=== PATIENT | female | born 2000 | race Caucasian/White ===

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

== ENCOUNTER → 2018-03-09 12:15 | Outpatient (CLI) | payer BC, SELFPAY ==
[2018-03-09 14:12] LABS: Absolute Lymphocyte Count 2.61 X10^3/ul (0.83-4.51); Absolute Neutrophil Count 4.2 X10^3/uL (2.0-7.7); Basophil# 0.04 X10^3/uL; Basophil% 0.5 % (0-1); Eosinophil# 0.08 X10^3/uL; Eosinophils% 1.1 % (0-5); Hematocrit 39.3 % (37-47); Hemoglobin 12.4 g/dl (12.0-15.0); Lymphocyte # 2.61 X10^3/ul (4.0); Lymphocyte % 34.5 % (19-41); Mean Corp Hgb Conc 31.6 g/gl (32-36); Mean Corpuscular Hgb 29.5 pg (27.0-32.0); Mean Corpuscular Volume 93.3 fL (81-99); Mean Platelet Vol. 12.3 fl (6.2-12.0); Monocyte% 7.9 % (0-10); Neutrophil # 4.23 X10^3/uL (2.7-7.7); Neutrophil % 55.9 % (47-70); POSITIVE COUNT NO; POSITIVE DIFFERENTIAL NO; POSITIVE MORPHOLOGY NO; Platelet Count 274 K/mm3 (150-450); RBC Distribution Width CV 13.5 % (11.6-14.6); RBC Distribution Width SD 44.1 fl (35.1-43.9); Red Blood Count 4.21 M/mm3 (4.2-5.4); White Blood Count 7.6 K/mm3 (4.4-11.0)
[2018-03-09 14:31] LABS: Vitamin B12 341 pg/mL (211-911); Vitamin D,25 Hydroxy 47.8 ng/mL (29.95-100.01)
[2018-03-09 14:32] LABS: Anion Gap 8 (5-15); BUN 6 mg/dL (7-18); BUN/Creat Ratio 9.6 RATIO (10-20); Calcium,Total 8.7 mg/dL (8.5-10.1); Chloride 108 mmol/L (98-107); Creatinine, Serum 0.62 mg/dL (0.55-1.02); EST Glomerular Filtration Rate 130 mL/min (>60); Est Glom Filt Rate - Afr Amer 158 mL/min (>60); Glucose 101 mg/dL (74-106); Sodium Level 144 mmol/L (136-145); Thyroid Stim Hormone (TSH) 1.51 uIU/mL (0.358-3.74)
== END ==
PROVIDERS: Family Provider Family Medicine; PCP Family Medicine; Visit Provider Family Medicine
DX: R00.0 Tachycardia, unspecified (principal); E55.9 Vitamin D deficiency, unspecified; E53.8 Deficiency of other specified B group vitamins
CPT/HCPCS: 36415; 80048; 82306; 82607; 83735; 84443; 85025

== ENCOUNTER → 2018-04-24 11:16 | Outpatient (CLI) | payer BC, SELFPAY | PROVIDERS: Family Provider Family Medicine; PCP Family Medicine; Visit Provider Family Medicine | DX: N39.0 Urinary tract infection, site not specified (principal) | CPT/HCPCS: 87077; 87086; 87088; 87186 ==

== ENCOUNTER → 2018-06-11 16:49 | Outpatient (CLI) | payer BC, SELFPAY ==
[2018-06-11 18:05] LABS: Vitamin B12 223 pg/mL (211-911); Vitamin D,25 Hydroxy 68.8 ng/mL (29.95-100.01)
== END ==
PROVIDERS: Family Provider Family Medicine; PCP Family Medicine; Referring Provider Family Medicine; Visit Provider Family Medicine
DX: E55.9 Vitamin D deficiency, unspecified (principal); E53.8 Deficiency of other specified B group vitamins
CPT/HCPCS: 36415; 82306; 82607

== ENCOUNTER → 2018-12-25 15:22 | Outpatient (CLI) | payer BC, SELFPAY ==
[2018-12-25 17:50] LABS: Absolute Lymphocyte Count 2.52 X10^3/ul (0.83-4.51); Absolute Neutrophil Count 7.1 X10^3/uL (2.0-7.7); Basophil# 0.02 X10^3/uL; Basophil% 0.2 % (0-1); Eosinophil# 0.13 X10^3/uL; Eosinophils% 1.2 % (0-5); Hematocrit 39.9 % (37-47); Hemoglobin 12.6 g/dl (12.0-15.0); Lymphocyte # 2.52 X10^3/ul (4.0); Lymphocyte % 24.2 % (19-41); Mean Corp Hgb Conc 31.6 g/gl (32-36); Mean Corpuscular Hgb 29.8 pg (27.0-32.0); Mean Corpuscular Volume 94.3 fL (81-99); Mean Platelet Vol. 12.6 fl (6.2-12.0); Monocyte# 0.63 X10^3/uL; Neutrophil # 7.11 X10^3/uL (2.7-7.7); Neutrophil % 68.2 % (47-70); Platelet Count 302 K/mm3 (150-450); RBC Distribution Width CV 13.1 % (11.6-14.6); RBC Distribution Width SD 43.5 fl (35.1-43.9); Red Blood Count 4.23 M/mm3 (4.2-5.4); White Blood Count 10.4 K/mm3 (4.4-11.0)
[2018-12-25 17:52] LABS: POSITIVE COUNT NO; POSITIVE DIFFERENTIAL NO; POSITIVE MORPHOLOGY NO
[2018-12-25 18:15] LABS: ALB/GLOB Ratio 1.1 RATIO (0.9-2.4); AST(SGOT) 17 U/L (15-37); Alanine Aminotransfer ALT/SGPT 20 U/L (13-56); Albumin, Serum 3.5 g/dL (3.2-5.0); Alkaline Phosphatase 72 U/L (45-117); Anion Gap 6 (5-15); BUN 7 mg/dL (7-18); BUN/Creat Ratio 10.2 RATIO (10-20); Calcium,Total 8.8 mg/dL (8.5-10.1); Chloride 105 mmol/L (98-107); Creatinine, Serum 0.68 mg/dL (0.55-1.02); EST Glomerular Filtration Rate 116 mL/min (>60); Est Glom Filt Rate - Afr Amer 140 mL/min (>60); Globulin 3.3 g/dL (2.2-4.2); Glucose 89 mg/dL (74-106); Potassium 4.5 mmol/L (3.5-5.1); Protein, Total 6.8 g/dL (6.4-8.2); Sodium Level 140 mmol/L (136-145); Thyroid Stim Hormone (TSH) 1.03 uIU/mL (0.358-3.74)
[2018-12-25 18:40] LABS: Vitamin B12 1374 pg/mL (211-911); Vitamin D,25 Hydroxy 44.9 ng/mL (29.95-100.01)
== END ==
PROVIDERS: Family Provider Family Medicine; PCP Family Medicine; Referring Provider Family Medicine; Visit Provider Family Medicine
DX: R53.83 Other fatigue (principal); E53.8 Deficiency of other specified B group vitamins; E55.9 Vitamin D deficiency, unspecified
CPT/HCPCS: 36415; 80053; 82306; 82607; 84443; 85025

== ENCOUNTER → 2019-01-18 14:54 | Outpatient (CLI) | payer BC, SELFPAY ==
[2019-01-18 17:58] LABS: Free T3 3.3 pg/mL (2.18-3.98); T4 Free Direct 1.12 ng/dL (0.76-1.46); Thyroid Stim Hormone (TSH) 1.08 uIU/mL (0.358-3.74)
[2019-01-20 08:19] LABS: Thyroid Peroxidase AB 13 IU/mL (0-34)
== END ==
PROVIDERS: Family Provider Family Medicine; PCP Family Medicine
DX: R53.83 Other fatigue (principal)
CPT/HCPCS: 36415; 84439; 84443; 84481; 86376

== ENCOUNTER → 2019-08-06 13:55 | Outpatient (CLI) | payer BC, SELFPAY ==
[2019-08-06 15:32] LABS: Vitamin B12 461 pg/mL (211-911); Vitamin D,25 Hydroxy 39.4 ng/mL (29.95-100.01)
== END ==
PROVIDERS: Family Provider Family Medicine; PCP Family Medicine; Visit Provider Family Medicine
DX: E53.8 Deficiency of other specified B group vitamins (principal); E55.9 Vitamin D deficiency, unspecified
CPT/HCPCS: 36415; 82306; 82607

== ENCOUNTER → 2020-02-04 13:55 | Outpatient (CLI) | payer BC, SELFPAY ==
[2020-02-04 15:54] LABS: Vitamin B12 223 pg/mL (211-911); Vitamin D,25 Hydroxy 42.1 ng/mL
== END ==
PROVIDERS: PCP Family Medicine; Referring Provider Family Medicine; Visit Provider Family Medicine
DX: E53.8 Deficiency of other specified B group vitamins (principal); E55.9 Vitamin D deficiency, unspecified
CPT/HCPCS: 36415; 82306; 82607; 82746

== ENCOUNTER 2020-02-13 09:00 | Outpatient (RCR) | payer BC, SELFPAY ==
--- NOTE | 2020-02-13 09:03 | BH.SGPN.GN ---
Behaviors/Verbalizations/Mental Status: [] Client alert and oriented, casually dressed. Eye contact good. Motor activity appropriate. Speech within normal limits. Affect congruent, mood anxious. Thoughts linear, logical, no signs of hallucinations or delusions. Reviewed client?s symptom tracker, self-reported risk for suicidal ideation as 2/, pt completed CSSR assessment with therapist prior to group and was found to not to be an immediate risk, denies plan or intent as of 02/13/20. Client Response/Progress/Benefit: []Client first day in IOP program, remained attentive and was willing to share with the group. Reports feeling anxious today as she has new to group counseling and is nervous about what to expect. Notes that this is a current stressor for her but that she recognizes the necessity of finding a ?better balance? regarding her mental health and current responsibilities. Client receptive of and appeared to benefit from support and encouragement from the group. Did well to identify a current mental health win which included stepping outside her comfort zone and asking for help via seeking mental health treatment. Noted goals for IOP treatment include improving ability to cope with depression in healthy ways, increase balance, and improve medication management. Progress not noted as client new to program. Will continue IOP tx to prevent decompensation, improve mood stability, and promote healthy mental health sx management. Narrative Note: []
--- NOTE | 2020-02-13 10:17 | BH.SGPN.GN ---
Behaviors/Verbalizations/Mental Status: []Eye contact is good. Motor activity is appropriate. Appearance is neat and clean. Speech is Appropriate. Mood is anxious, depressed. Affect is unable to gather due to wearing a mask for COIVD-19 protocol. Thoughts are linear and logical. No evidence of psychosis. Client Response/Progress/Benefit: []Client was an active participant in group discussion and activity, providing input throughout. Client worked with peers on defining what goals are. Brainstormed with the group the benefits of goal setting which included: increased motivation, sense of accomplishment, increased confidence, growth, and purpose. Client helped group discussed the barriers that keep people from either setting goals are following through with goals. Client connected with barriers of black and white thinking, fear of success, and ?what if thinking? that keep people from reaching goals. Able to provide feedback during psychoeducation on SMART goals. Engaged in activity and did well to provide ideas and listen to peers. Client appeared to benefit from learning the mental health benefits of setting goals that are SMART. Will continue IOP tx to prevent decompensation of anxiety and depressive symptoms as well as increase the use of healthy coping skills. Narrative Note: []
--- NOTE | 2020-02-14 08:48 | BH.MTP_ITS ---
Master Treatment Plan - Patient Information Program Physician:: Dr. Dalia Manrique Primary Therapist:: ALLISON Hensley - Psychiatric Diagnoses Psychiatric Diagnoses:: Major depressive disorder recurrent severe without psychosis; PTSD; generalized anxiety disorder. Diagnosis Code(s):: F 33.2 - Estimated LOS Estimated LOS (in weeks):: 6 Problem/Goal #1 - Problem/Goal #1 Stated Goal:: Client will reduce depression, feelings of hopelessness, and suicidal ideation due to Major Depressive Disorder through Intensive Outpatient Program. 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 Pt also reports chronic physical ailments which impact energy and motivation levels. Functional Impact: Currently MH symptoms are interfering with pt ability to function at baseline. Pt reports difficulties in reaching out to social supports on a consistent basis due to isolative behaviors, difficulties in maintaining anxiety regarding her current relationships, difficulties with sleep and pain management resulting in increased difficulties in maintaining focus and motivation, financial strain, and difficulties completing daily responsibilities. Goal Relevant Strengths/Supports: Pt is open-minded and willing to try new treatment approaches, reports motivation to improve her mental health, she is friendly and engaging, familiar with mental health counseling services, goal oriented, and intelligent - Objectives Objective #1 Stated Objective: Client will learn and utilize 2-3 healthy coping strategies to improve mood stability and better manage mental health symptoms. Interventions: Therapist will help client develop insight into mental health warning signs and triggers for mood dysregulation, as well as help her find strategies to better manage mood and prevent escalation of depressive symptoms. Discharge Criteria: Client will have met this goal when she can use at least 2 healthy coping strategies that effectively regulate mood and manage depressive symptoms. Target Date: 03/27/20 Review Date: 03/13/20 Objective #2 Stated Objective: Pt will decrease depressive and irritability symptoms AEB pt?s score on the DSM 5 cross-cutting measure and improve pt?s daily functioning. Interventions: Through groups and individual therapy, pt will be provided with education on cognitive distortions, mistaken beliefs, and identifying and combating negative self-talk. Therapist will assist pt with getting back into the activities she once enjoyed as well as increasing healthy coping strategies. Discharge Criteria: Pt will have met this goal when pt?s score on the DSM 5 cross cutting measure for depression and irritability has been decreased and per pt?s report daily functioning has improved. Target Date: 03/27/20 Review Date: 03/13/20 Problem/Goal #2 - Problem/Goal #2 Stated Goal:: Stabilize anxiety level while increasing ability to function and decreasing ruminative thoughts on a daily basis through Intensive Outpatient Program. 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 Pt also reports chronic physical ailments which impact energy and motivation levels. Functional Impact: Currently MH symptoms are interfering with pt ability to function at baseline. Pt reports difficulties in reaching out to social supports on a consistent basis due to isolative behaviors, difficulties in maintaining anxiety regarding her current relationships, difficulties with sleep and pain management resulting in increased difficulties in maintaining focus and grace vation, financial strain, and difficulties completing daily responsibilities. Goal Relevant Strengths/Supports: Pt is open-minded and willing to try new treatment approaches, reports motivation to improve her mental health, she is friendly and engaging, familiar with mental health counseling services, goal oriented, and intelligent - Objectives Objective #1 Stated Objective: Client will learn and implement 2-3 calming skills to reduce overall anxiety and manage anxiety symptoms. Interventions: Therapist will teach client calming/relaxation skills and how to apply these skills to everyday life. Discharge Criteria: Client will have achieved this goal when can verbalize at least 2 calming strategies and have practiced techniques to help reduce anxiety. Target Date: 03/27/20 Review Date: 03/13/20 Objective #2 Stated Objective: Pt will decrease anxious symptoms AEB pt?s score on the DSM 5 cross-cutting measure improve pt?s daily functioning. Interventions: Through groups and individual therapy, pt will be provided education about anxiety?s impact on body and common physiological reaction to anxiety. Therapist will teach pt appropriate breathing techniques and build healthy coping skills to manage daily anxieties. Discharge Criteria: Pt will have met this goal when pt?s score on the DSM 5 cross cutting measure for anxiety has been decreased and per pt?s report daily functioning has improved. Target Date: 03/27/20 Review Date: 03/13/20
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
--- NOTE | 2020-02-19 09:16 | BH.NA_ITS ---
Physical Data - Vital Signs Pulse Rate: 84 Blood Pressure: 140/84 - Height/Weight Height: 1.65 m - stated Weight:: 113.398 kg - stated Weight in Pounds: 250.0 lbs Nutritional History - Appetite Nutritional Instructions:: If client shows signs of a swallowing problem, weight change of 10 pounds or more in the last month, or is on a diabetic diet, the physician will review and request a dietitian consult, as appropriate. All unintentional weight loss will be referred to the physician for decision on need for dietitian consult. Describe your appetite:: Poor Have you noticed a change in your eating habits lately?: Yes - Client states a decreased appetite lately, otherwise varies. Functional Assessment - Sleep Pattern Describe any problems with sleeping: Client states sleep has not been great and nelia been difficult since medication Remeron was stopped which helped with sleep. Client reports sleep hours vary per night from 0-12 hours. Client states slept 4 hours last night. - Activities Motor Activity:: Hypoactivity - Client states has had low energy and fatigue with a loss of motivation. Sensory/Communication Assess - Vision Problems Do you have any vision problems?: Glasses - Communication Problems Do you have difficulty understanding what people are saying?: No Medical Problems/History - Neurological Conditions Neurological: Other (See comments) - Fibromyalgia - Additional History Additional comments:: Client states has h/o Depression, Anxiety, PTSD, Vit B12 and Vit D deficiency Surgical History - Surgical History Have you had any surgeries? If so, list type and date:: Yes - [place] teeth Substance Abuse - Substance Abuse Please describe substance abuse in the last 30 days:: Client states consumes liquor or wine approx once per week but has recently stopped drinking. Client States uses Cannabis daily for pain management but denies any other past or current subtance uses. Client denies past or current tobacco use. Client reports consumes caffiene, consisting of tea daily. Mental Status Summary - Mental Status Significant Findings/Observations on Appearance and Mood:: Client is alert and oriented x4. Client is casually groomed. Client is cooperative with assessment, makes good eye contact during conversation. Client's speech with normal rate and volume, coherent, and spontaneous. Client appears Mildly depressed and mildly anxious during assessment. Client makes logical association, normal processing. Client denies delusions and hallucinations, none evident. Client appears to have good insight and judgement. Suicide Assessment - Suicidal Ideation Are you currently or have you been suicidal in the past?: Yes - Client states has had SI-fleeting thoughts unchanged over the past year. Suicidal Intentional Rating Scale (SIRS): Suicidal thoughts (past) - Client states has had fleeting suicidal thoughts over the past year and current. Client reports this is unchanged, denies exacerbation or worsening, denies plan or means to act on thoughts. Physician Notification: If Active suicidal thoughts/Will not contract for s afety is checked, contact physician and document in the Physician Notification section below. Assault History/Potential - History of Assault Do you have a history of assaulting someone?: No - Client denies current HI Physician Notification: If yes, notify physician and document notification date and time below. Past Psychiatric History - MH Treatment Hx Past Psychiatric Medications:: Client reports has taken Prozac, Lexapro, and Cymbalta in the past. Age of first mental health symptoms: Client reports was first diagnosed with Mental Health condition around 17-16yo. Describe (age, circumstance, etc) any past hospitalizations: Client denies any mental health hospitalizations. Current providers for mental health treatment (counselor, psychiatrist, outsole caser, etc.): Client states is treated by neuropsychology division chief Loni Holloway at [facility]. Client reports used to see therapist at [facility] but therapist is retiring and needs to find a new one. Fall Risk Assessment - Age Age: Less than 60 - Mental Status Mental Status: Willing & able to ask for assistance when needed - Physical Status Physical Status: No problems - Impairments Impairments: None - Elimination Elimination: Continent AND independent - Gait or Balance Gait or Balance: Walks independently - Hx of Falls History of falls in the past 6 months: No known history - Medications/Substances Psychotropics:: Antidepressants Others:: Antihypertensives Medications/substances used within the past 24 hours or ordered to administer: 1-2 of the medications/substances listed above - Total Score Total Points:: 1 RN Summary of Impressions - Impressions Recommendations: Include psychiatric and medical issues, treatment planning recommendations, and discharge planning needs. Impressions: Psychiatric Issues: Major depressive disorder recurrent severe without psychosis; PTSD; generalized anxiety disorder - Level of Care How do the client's current symptoms and functional deficits support need for this level of care?: Client details onset of current episode, stating symptoms have worsened over the past year. Client States quit job for school and just graduated from college during COVID pandemic and now trying to find a job and get back on her feet. Client states that the anxiety, depression and PTSD have worsened d/t all the current world events that are going on. Client reports has had decreased energy, fatigue and loss of motivation. IOP will promote gains and prevent further decompensation while providing social support and skills training.
--- NOTE | 2020-02-19 10:25 | BH.SGPN.GN ---
Behaviors/Verbalizations/Mental Status: []Client alert and oriented, neatly dressed and groomed. Eye contact good. Motor activity appropriate. Speech within normal limits. Affect unable to gather due to wearing a mask for COVID-19 protocol, mood anxious. Thoughts linear, logical, no signs of hallucinations or delusions. Client Response/Progress/Benefit: []Client was an engaged participant throughout group session AEB client participating in the activity and providing insight to discussion. Group identified unhealthy coping skills which included; avoidance, isolation, drugs and alcohol, denial, and taking emotions out on others. Group reported people turn to unhealthy skills because of habit and learned behaviors. Participated in the activity and discussed the importance of creating a strong foundation of healthy coping skills in order to manage life stressors. Client worked well with her group and provided ideas to peers. Client seemed to benefit from increased awareness of importance of increasing healthy coping skills and consequences of utilizing unhealthy coping skills. Client will continue IOP tx to reduce intensity of depressive and anxiety symptoms as well as improve daily functioning. Narrative Note: []
[2020-02-19 10:42] VITALS: BP 140/84; PULSE 84
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
--- NOTE | 2020-02-19 13:44 | BH.DR.ITP ---
Initial Treatment Plan - Patient Information Visit Information: ADMISSION DATE: EXPECTED LOS: 4-6 weeks - Problems/Symptoms Problem #1:: Depression Symptom:: sadness, hopelessness, worthlessness, biological disruption of sleep, passive suicidal ideation Problem #2:: Anxiety Symptom:: worry, panic attacks, flashbacks, avoidance, re-experiencing, dreams
--- NOTE | 2020-02-21 09:10 | BH.SGPN.GN ---
Behaviors/Verbalizations/Mental Status: [] Eye contact is good. Motor activity is appropriate. Appearance is casual. Speech is Appropriate. Mood is anxious. Affect is congruent. Thoughts are linear and logical. No evidence of psychosis. Reviewed daily check in sheet and pt reports 2/5 for suicidal ideations and 0/5 for intent. Therapist notified. Client Response/Progress/Benefit: [] Pt was an active participant in group discussions on anger, fear, and healthy ways to express these emotions. Emotion for today is nervous. Shared with the group worry and anxiety related to her fiance and his medical condition. Spent time in the ER and urgent care with him the last 2 days. She has been utilizing skills such as mindfulness, meditation, and grounding. She reports that she is learning to allow herself to feel and accept her emotions rather than try to fight them which has been strange. Progress noted per pt report. Benefited from group support, encouragement, and feedback. Will continue in IOP to maintain safety, prevent decompensations, and improve functioning. Narrative Note: []
--- NOTE | 2020-02-21 10:10 | BH.SGPN.GN ---
Behaviors/Verbalizations/Mental Status: []Client alert and oriented, casually dressed and groomed. Eye contact good. Motor activity appropriate. Speech within normal limits. Affect congruent, mood anxious and dysthymic. Thoughts linear, logical, no signs of hallucinations or delusions. Client Response/Progress/Benefit: []Pt receptive of session, attentive in discussion and activity. Client discussed the quote and provided input on how suppressing emotions can cause you to explode later. Client helped group identify barriers that impact one?s ability to communicate when emotions are high. These barriers included; shutting down, lack of self-care, irritability, fear of reactions, and distorted thinking patterns. Client reported lack of confidence can keep her from communicating when she feels strong emotions. Client participated in the challenge activity and did well to manage emotions throughout. Stated focusing on the goal to manage anxiety in the moment. Client appeared to benefit from increasing awareness of how emotions can impact communication and practicing in the moment coping skills. Progress noted as client took on a role during the activity that was out of comfort zone. Client will continue IOP tx to further decrease depression, reduce distorted thought patterns, and improve daily functioning. Narrative Note: []
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
--- NOTE | 2020-02-21 11:10 | BH.SGPN.GN ---
Behaviors/Verbalizations/Mental Status: []Client alert and oriented, neatly dressed and groomed. Eye contact good. Motor activity appropriate. Speech within normal limits. Affect unable to gather due to wearing a mask for COVID-19 protocol, mood dysthymic. Thoughts linear, logical, no signs of hallucinations or delusions. Client Response/Progress/Benefit: []Client engaged in session AEB client listening attentively to peers and providing insight to discussion. Attentive during psychoeducation on 4 zones of regulation. Client able to identify feelings and behaviors for each zone. Group identified coping skills one can use to support self in each zone which included: walking, mindfulness, deep breathing, music, talking to supports, and opposite action. Client left before she identified the zone she believes she in in today, but was able to gain insight through discussion. Client identified that to help regulate her different moods she often turns to mindfulness, grounding, and going out in nature. Benefited from increased education on zones of regulation or stages of alertness for emotions and healthy coping skills to use for each zone. Will continue IOP tx to prevent decompensation of depressive symptoms, improve daily functioning, and improve mood stability. Narrative Note: []
== END 2020-02-25 23:59 ==
LOC: BHIOP 09:00
PROVIDERS: PCP Family Medicine; Referring Provider Psychiatry & Neurology Psychiatry; Visit Provider Psychiatry & Neurology Psychiatry
DX: F33.2 Major depressive disorder, recurrent severe without psychotic features (principal); F41.8 Other specified anxiety disorders; F43.10 Post-traumatic stress disorder, unspecified; Z62.811 Personal history of psychological abuse in childhood; F12.90 Cannabis use, unspecified, uncomplicated; M79.7 Fibromyalgia; E55.9 Vitamin D deficiency, unspecified; E53.8 Deficiency of other specified B group vitamins; E66.9 Obesity, unspecified; R45.851 Suicidal ideations
CPT/HCPCS: H0035; 90837; 90853

== ENCOUNTER 2020-02-26 09:00 | Outpatient (RCR) | payer BC, SELFPAY ==
[2020-02-26 00:38] VITALS: BP 140/84; PULSE 84
--- NOTE | 2020-02-26 09:05 | BH.SGPN.GN ---
Behaviors/Verbalizations/Mental Status: [] Client alert and oriented, casual dress. Eye contact fair to good. Motor activity appropriate. Speech within normal limits. Affect unable to gather due to client wearing a mask for COVID-19 protocol, mood euthymic. Thoughts linear, logical, no signs of hallucinations or delusions. Reviewed client?s symptom tracker, client reports suicidal ideation as a 1/5 which is reduced from baseline average of 2/5, client denies plan, or intent as of today. Future oriented. Client Response/Progress/Benefit: [] Client attentive and openly shared with the group. Reports feeling hopeful today which client attributes to having decreased physical pain this morning. Shared that over the past few days she has had an increase in fibromyalgia symptoms, impacting both her physical and mental health. Discussed that despite the increase in pain she used opposite action to accomplish small tasks around the house. Shared additionally taking the step to ask her supports for help which is outside of her usual. Able to identify these both as mental health wins. Client discussed current stressors to include ongoing issues with sleep but is trying to challenge herself not to become discouraged. Progress noted in self-report of improved skill application and reduced depression. Will continue IOP tx to prevent decompensation, improve mood stability, and promote healthy mental health sx management. Narrative Note: []
--- NOTE | 2020-02-26 12:33 | BH.MDN_ITS ---
Multi-Disciplinary Note - Note 60-min Individual Time Started:: 10:38 Date: 02/26/20 Purpose of session/treatment goals addressed:: The purpose of this session was to address tx goals #1 and #2. Additional purpose was to discuss healthy communication and conflict resolution. Eye Contact:: Good Motor Activity:: Appropriate Appearance:: Casual Speech:: Appropriate Mood:: Anxious, Dysthymic Affect:: Congruent Thoughts:: Linear, Logical, No evidence of hallucinations/delusions noted Staff Interventions:: thought challenging, motivational interviewing - healthy communication and self-care skills, CBT techniques, mindfulness skills Client Response:: Client responded well to session, open to meeting with therapist. Reports client continues to struggle with depression and physical pain. Noted in influx in fibromyalgia pain making it difficult to complete tasks around the house and limiting client?s ability to engage in creative self-care. Client discussed decreased appetite as well but that they have been making efforts to force themselves to continue to eat several small meals throughout the day. Client identified wanting to continue to work on improving daily self- care and finding activities to engage in when struggling with physical pain. Identified reading and mindfulness skills. Client provided insights regarding recent group on discussing communication and conflict. Identified that they often struggle with not knowing when to take ?a step back from conflict? and would like to improve upon this. Worked with therapist to identify warning signs that client is not in the right mindset to engage or that the conflict is potentially unnecessary. Shared plans to practice thoughts challenging and asking self ?do I need to take a step back?? for homework. Risks/Concerns:: Client denies any active suicidal ideations, plan, or intent as of this date. Continues to report chronic passive thoughts. Is future oriented and protective factors noted. Progress Toward Goals/Plan:: Progress limited as client continues to report symptoms of depression and anxiety. Noted physical health is impeding engagement in self-care as well. Receptive of alternative less intensive self-care options. Client reports continued issues with ruminating and intrusive thoughts. Will continue IOP tx to further improve healthy coping and self-care skills, increase mood stability, and maintain safety. Time Stopped:: 11:40
--- NOTE | 2020-02-27 10:19 | BH.SGPN.GN ---
Behaviors/Verbalizations/Mental Status: []Client alert and orient. Appearance casual and appropriately groomed. Speech an appropriate rate and tone. Motor activity WNL. Mood anxious, affect unable to gather due to client wearing a mask for COVID-19 protocol. No evidence of delusion or hallucinations.? Client Response/Progress/Benefit: []Client responded well to session, attentive and contributing to discussion. Group discussed benefits of healthy communications on mental health which included: getting help, better relationships, less misinterpretations, and improved emotional regulation. Group additionally discussed potential barriers to communication including: shutting down, tone of voice, assumptions, yelling, passive aggressive behaviors, and poor emotional regulation. Client shared being accusatory is a communication pot-hole because it can make the other person shut down. Attentive during psychoeducation on the four communication styles. Client self-reports identifying most with the passive and assertive communication styles. Client shared she has had her share of misinterpretations and gave examples from past relationships. Progress noted in increased insight into personal communication styles and barriers. Client will continue in IOP tx further improve mood stability, reduce anxiety, and increase use of healthy coping skills. Narrative Note: []
--- NOTE | 2020-02-28 09:00 | BH.SGPN.GN ---
Behaviors/Verbalizations/Mental Status: [] Client alert and oriented, casual dress. Eye contact good. Motor activity appropriate. Speech within normal limits. Affect unable to gather due to client wearing a mask for COVID-19 protocol, mood dysthymic and anxious. Thoughts linear, logical, no signs of hallucinations or delusions. Reviewed client?s symptom tracker, reports suicidal ideation at a rate of 1/5 which is consistent with pt baseline, denies current plan, or intent as of today. Client Response/Progress/Benefit: [] Pt responded well to session, providing feedback to peers and actively engaged throughout. Reports feeling tired today as she has been struggling with getting consistent sleep. Expressed that despite struggling to sleep she has been doing well to implement healthy coping skills of opposite action and tracking small wins. Shared her current mental health wins include reaching out to supports when she is struggling as well as getting creative with pain management techniques such as using grounding and healthy distraction rather than becoming discouraged. Pt reports this as progress and indicated an overall improvement in her mood as well. Appeared to benefit from the support and encouragement provided by the group. Will continue IOP tx to promote more consist mood stability, improve daily functioning, and reduce intensity of symptoms. Narrative Note: []
--- NOTE | 2020-03-02 11:15 | BH.SGPN.GN ---
Behaviors/Verbalizations/Mental Status: []Client alert and oriented, casually dressed, hygiene appeared to be tended to. Eye contact good. Motor activity appropriate. Speech within normal limits. Affect unable to gather due to wearing a mask for COVID-19 protocol, mood euthymic. Thoughts linear, logical, no signs of hallucinations or delusions. Client Response/Progress/Benefit: []Client responded well to session, attentive and more vocal than usual. Group discussed the negative consequences of not acknowledging one?s strengths. Connected with the benefits of recognizing personal strengths on improving mental health which included: increased self-confidence, increased willingness to try new things, and better management of symptoms. Client able to identify personal strengths she possesses which includes: artistic ability, empathy, honesty, intelligence, and persistence. Client listed a lot of strengths and shared she has always been able to identify personal strengths. Client reported identified personal strengths have helped client in her mental health journey. Client shared her strengths have helped client find help, use creative coping skills, and be open with mental health. Group discussed strategies to help them acknowledge strengths more often. Appeared to benefit from recognizing personal strengths and identifying strategies to increase recognition of strengths. Will continue IOP tx to reduce the intensity of her symptoms and improve overall mood stability. Narrative Note: []
--- NOTE | 2020-03-03 09:00 | BH.SGPN.GN ---
Behaviors/Verbalizations/Mental Status: [] Client alert and oriented, casual dress. Eye contact good. Motor activity appropriate. Speech within normal limits. Mood dysthymic. Affect unable to gather due to client wearing a mask as recommended during COVID-19 pandemic. Thoughts linear, logical, no signs of hallucinations or delusions. Reviewed client?s symptom tracker, suicidal ideation reported at a rate of 3/5, however pt denies any plan, or intent as of today. Willing to meet with individual therapist for further assessment. Client Response/Progress/Benefit: [] Pt responded well to session, engaged throughout. Reports feeling frustrated today as she has struggled with getting adequate sleep over the past week. Pt indicated trying a variety of techniques for improving sleep such as reduced screen time, using melatonin, and listening to music without success. Indicated that the lack of sleep is beginning to negatively impact her mental health and that she has been experiencing increased emotional vulnerability as a result. Shared working to use thought challenging to shift her perspective and focus on the positives. Pt able to identify current areas of progress which included use of radical acceptance to challenge frustration at bedtime, as well as use of opposite action to complete her goal of doing the dishes. Pt was receptive of and appeared to benefit from support and suggestions for improved sleep provided by the group. Noted plans to try meditating tonight. Progress noted in pt self-report of increased ability to apply healthy skills when faced with setbacks or frustrations. Will continue IOP tx to increase consistent use of coping skills promoting mood stability, improve daily functioning, and reduce intensity of symptoms. Narrative Note: []
--- NOTE | 2020-03-03 16:33 | BH.MDN_ITS ---
Multi-Disciplinary Note - Note 45-min Individual Time Started:: 11:36 Date: 03/03/20 Purpose of session/treatment goals addressed:: The purpose of this session was to address current symptoms and stressors impacting mental health, as well as further assess for risk given elevated scores on daily symptom tracker. Another goal was to provide psychoeducation on healthy sleep hygiene and work with client to develop a plan for naturally improving quality of sleep. Eye Contact:: Good Motor Activity:: Appropriate Appearance:: Casual Speech:: Appropriate Mood:: Dysthymic, Other - fatigued Affect:: Congruent, Other - difficult to determin as client wearing a mask per COVID-19 protocol. Thoughts:: Linear, Logical, No evidence of hallucinations/delusions noted Staff Interventions:: Therapist used active listening and open-ended questions to elicit information on client's current symptoms and stressors impacting overall mood and ability to make progress on mental health symptom management. Therapist further assessed client for overall risk given increased suicidal ideation indicated on daily symptom tracker. Gave supportive feedback and emotion validation while client discussed ongoing frustrations concerning sleep. Provided psychoeducation regarding impacts of lack of sleep on mental health and daily functioning, as well as reviewed healthy sleep hygiene with client. Worked with client to develop a plan for changing current sleep routine to naturally improve quality of sleep. Client Response:: Client responded well to session, open to meeting with therapist. Client shared she has been struggling over the past few days with sleep and over the weekend was up for 72 hours straight. Indicated that she had been able to take a nap following group yesterday and ended up sleeping for about 5 hours but then was unable to sleep at night. Shared she has never previously struggled with to this extent and is noticing impacts on her mental health as a result. Discussed feeling more emotional as a result. Client was rec eptive of psychoeducation provided regarding the relationship between lack of sleep and mental health symptoms management. Expressed connecting with increased difficulties in focusing or thinking clearly, as well as reduced motivation, frustration, and an increase in suicidal ideation. Noted that her thoughts are passive in nature and related to ongoing frustrations with not being able to sleep. Denies active suicidal ideation, plan, or intent. Client expressed a desire to seek natural solutions for treating her insomnia as in the past she has had thoughts of overdosing on sleep medication. Client indicated that she has already attempted to use techniques such as music, stretching, and turning off any electronics prior to bed without success. Worked with therapist to review her current nighttime routine and identify potential areas impacting sleep. Client noted racing thoughts or ?difficulty turning off my brain?, inconsistent sleep schedule, and often laying in bed for prolonged periods of time despite not being able to fall asleep. Client receptive of psychoeducation provided regarding healthy sleep hygiene behaviors as well as behaviors to avoid which could be contributing to insomnia. Expressed plans to consider engaging in a daily art exercise to process the day prior to bed time. Additional skills client discussed planning to implement included taking a warm bath at night with Epsom salt, burning incense, and playing nature sounds in the background. Discussed importance of creating a more consistent bedtime in which client indicated some apprehension in doing so, but expressed willingness to begin working on improving in this area. Risks/Concerns:: Client denies any active suicidal ideations, plan, or intent as of 03/03/20. Reports chronic passive thoughts of which have been further impacted by recent lack of sleep. Client reports sleeping pills have been a method she has considered in the past and therefore would like to avoid use of medication assistance for sleep. This indicates future orientation. Progress Toward Goals/Plan:: Client is demonstrating progress towards treatment goals as shown by ability to implement skills of thought challenging and opposite action despite experiencing significant issues regarding sleep. Reports that she has been making an effort to focus on the positives rather than ruminate on the negative, as well as used components of radical acceptance to allow herself to notice feelings of frustration without becoming fixated on them. Client continues to report insomnia as a major stressor which has begun to impact progress AEB increased report in passive thoughts of , reduced focus, and difficulties in emotion regulation. Client willing to work on implementing sleep hygiene skills reviewed in session and therapist will consult with psychiatrist regarding client concerns as well as continue to monitor. Will continue IOP tx to further promote application of healthy skills learned, maintain gains, and prevent decompensation. Time Stopped:: 12:16
--- NOTE | 2020-03-06 09:00 | BH.SGPN.GN ---
Behaviors/Verbalizations/Mental Status: []Client alert and oriented, neatly dressed and groomed. Eye contact good. Motor activity appropriate. Speech within normal limits. Affect unable to gather due to wearing a mask for COVID-19 protocol, mood dysthymic. Thoughts linear, logical, no signs of hallucinations or delusions. Reviewed client?s symptom tracker and client's scores were within her baseline, no risk for suicidal ideation, plan, or intent as of 03/06/20. Client Response/Progress/Benefit: []Client responded well to session, receptive to feedback and attentive. Client reports feeling mentally and physically tired today. Client shared she feels frustrated with herself because I'm not getting everything done that I need to do. Client able to challenge these thoughts and practice cognitive restructuring. Client reported she has been sleeping better which was a stressor for client last week. Client shared she has been using melatonin, lavender, and essential oils before bed which has been helpful. 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 Appeared to benefit from challenging thoughts in the moment and reflecting on her use of calming coping skills. Will continue IOP tx to further decrease depression, improve mood stability, and reinforce healthy coping skills. Narrative Note: []
--- NOTE | 2020-03-06 10:03 | BH.SGPN.GN ---
Behaviors/Verbalizations/Mental Status: []Client alert and oriented, casual dress, hygiene tended to. Eye contact fair. Motor activity appropriate. Speech within normal limits. Affect could not be assessed due to pt wearing a face mask as precaution against coronavirus. mood euthymic. Thoughts linear, logical, no signs of hallucinations or delusions. Client Response/Progress/Benefit: []Pt engaged in session AEB pt providing input throughout discussion, taking notes and listening attentively to peers. When processing the quote pt stated she believes disappointing others is not as important then disappointing yourself. Assisted group with identifying boundaries can impact the following: how much someone takes advantage of you, either bring people closer or push people away, keep us safe, reduce the risk of peer pressure, impact positive or negative self-worth. Actively engaged in discussion about the different types of boundaries, providing feedback and insights throughout. Pt reported it's important to have open and honest communication when setting boundaries. Pt to continue IOP to continue use of healthy coping, challenge negative thoughts, and prevent decompensation. Narrative Note: []
--- NOTE | 2020-03-06 11:05 | BH.SGPN.GN ---
Behaviors/Verbalizations/Mental Status: [] Client alert and oriented, casually dressed. Eye contact good. Motor activity appropriate. Speech within normal limits. Affect congruent, mood euthymic. Thoughts linear, logical, no signs of hallucinations or delusions. Client Response/Progress/Benefit: [] Client responded well to session, contributing to discussion and able to make connections during activity. Client was additionally attentive during psychoeducation on the boundary setting styles and provided examples of times she has struggled with having overly porous boundaries, especially when it comes to boundaries with supports. Shared belief she uses ?a mix of healthy and porous? boundary setting styles. Client stated she can maintain healthy boundaries most of the time but finds herself struggling to tell supports ?no? or respect her own time related boundaries. Reported wanting to work on challenging herself to prioritize her time needs more through self-accountability. Progress noted in client?s self-report of improved skill application and increased positivity. Will continue IOP tx to promote use of healthy coping skills, maintain mood stability, and improve functioning. Narrative Note: []
--- NOTE | 2020-03-12 09:05 | BH.SGPN.GN ---
Behaviors/Verbalizations/Mental Status: [] Eye contact is good. Motor activity is appropriate. Appearance is casual. Speech is Appropriate. Mood is depressed. Affect is full. Thoughts are linear and logical. No evidence of psychosis. Reviewed daily check in sheet and pt reports 1/5 for suicidal ideations and 0/5 for intent. Per therapist this is below her baseline. Client Response/Progress/Benefit: [] Pt was an active participant in group discussion. Emotion for today is tired. States not a whole lot of wins however was able to identify increased sleep, keeping up with art commissions, and consistent self-care. Had a friend that was reporting significant depression and she was able to provide support. She is struggling to get her sleep cycle back on track stating that her body wants to sleep from 5am-7am. Proactive in her attempts utilizing several health sleep strategies. Progress noted per pt report. Benefited from group support, encouragement, and feedback. Will continue in IOP to maintain safety, improve functioning, and prevent decompensation. Narrative Note: []
--- NOTE | 2020-03-12 10:12 | BH.SGPN.GN ---
Behaviors/Verbalizations/Mental Status: []Client alert and oriented, casually dressed. Eye contact fair to good. Motor activity appropriate. Speech within normal limits. Affect congruent, though difficult to assess as pt wearing a mask per COVID-19 protocol. mood dysthymic. Thoughts linear, logical, no signs of hallucinations or delusions. Client Response/Progress/Benefit: []Client engaged throughout session AEB providing input to discussion and taking notes throughout. Connected with discussion on how coping with external crises by using unhealthy coping skills could result in a personal crisis. Client noted that ?sometimes our response doesn?t feel effective? which can increase desire to use unhealthy means of coping with potential crisis situations. Group reported that it is important to have awareness of warning signs which can prevent reaching crisis point. Group identified warning signs for crisis and client completed the personal warning signs worksheet. Client identified personal crisis warning signs to include: apathy, loss of motivation, and feeling disconnected. Benefited by increasing awareness of crisis and personal warning signs. Progress noted in client self-report of improved ability to challenge negative thoughts and increased application of opposite action skills. Will continue IOP tx to increase healthy coping, improve mood stability and prevent decompensation. Narrative Note: []
--- NOTE | 2020-03-12 11:11 | BH.SGPN.GN ---
Behaviors/Verbalizations/Mental Status: []Client alert and oriented, casually dressed and groomed. Eye contact fair. Motor activity appropriate. Speech within normal limits. Affect unable to gather due to client wearing a mask for COVID-19 protocol. Mood dysthymic. Thoughts linear, logical, no signs of hallucinations or delusions. Client Response/Progress/Benefit: []Client responded well to session as evidenced by client listening attentively to others and providing input throughout session. Client identified her warning signs for crisis and gained further awareness of earliest warning signs. Client used the warning signs: disassociation, apathy, and loss of motivation to create her crisis plan. Client created a crisis action plan to help client better manage warning signs for crisis. Client?s plan included: take a cold shower, validate her reality, grounding, opposite action, ?emotional shock,? hobbies, take small steps, and creating checklists. Client also recognizes that she can ask outside support for help. Client appeared to benefit from creating a crisis action plan and increasing self-awareness. Client to continue IOP tx to promote use of healthy coping skills, further reduce intensity of symptoms, and increase mood stability. Narrative Note: []
--- NOTE | 2020-03-13 08:38 | BH.MTP_ITS ---
Treatment Plan Review Date of Admission:: 02/14/20 Date of Treatment Plan Review:: 03/13/20 Admitting Diagnoses:: Major depressive disorder recurrent severe without psychosis; PTSD; generalized anxiety disorder. Current Diagnoses:: Major depressive disorder recurrent severe without psychosis; PTSD; generalized anxiety disorder. Patient's Response to Treatment:: Pt has responded well to treatment and is often engaged in both individual and group sessions. Pt provides input to discussion and is able to make connections between materials discussed and mental health sx management in her own life. Since admission, pt has struggled at times with consistently attending or with being tardy, however is making improvements in this area and has opted to attend via telehealth when unable to be present in person. Reports utilizing skills learned in IOP outside group as well. Provides appropriate feedback. Status of Current Problems and Symptoms: Client is demonstrating progress towards treatment goals as shown by ability to implement skills of thought challenging and opposite action despite experiencing significant issues regarding sleep. Reports that she has been making an effort to focus on the positives rather than ruminate on the negative, as well as used components of radical acceptance to allow herself to notice feelings of frustration without becoming fixated on them. Client continues to report insomnia as a major stressor which has begun to impact progress AEB increased report in passive thoughts of , reduced focus, and difficulties in emotion regulation. Pt does report improved communication with her supports, reduced anxiety, and improved willingness to engage in activities she enjoys that she has ignored when struggling in the past. Problem #1 Problem Name:: Depression/passive SI Status of Goals:: some progress with continued tx encouraged. Pt reports improved ability to engage in activities that she finds engageable, as well as i mproved self-care and communication with supports; however, continues to struggle with consistency of skill application. Additionally, reports increased passive thoughts of without plan or intent. Reports beliefs this is due to increased problems with sleep. Team Recommendations:: Continued treatment with additional focus on identifying and addressing potential distortions and triggers impacting her thoughts and resulting in continued passive thoughts of . Problem #2 Problem Name:: Anxiety, panic, rumination Status of Goals:: Progress noted with continued tx encouraged for maintenance. Pt reports reduction in overall anxiety levels and has found improved ability to use thought challenging, reaching out to supports, and practice use of calming skills in times of heightened anxiety. Reports improved ability to communicate with her partner about concerns and triggers which has aided in reducing overall anxiety levels as well. Team Recommendations:: Continue with current treatment plan.
--- NOTE | 2020-03-13 08:38 | BH.MDN_ITS ---
Multi-Disciplinary Note - Note 60-min Individual Time Started:: 10:45 Date: 03/13/20 Purpose of session/treatment goals addressed:: The purpose of this session was to address tx goals #1 and #2. Additional purpose was to create a self-care routine. Eye Contact:: Good Motor Activity:: Appropriate Appearance:: Casual Speech:: Appropriate Mood:: Euthymic, Anxious Affect:: Congruent Thoughts:: Linear, Logical, No evidence of hallucinations/delusions noted Staff Interventions:: thought challenging, motivational interviewing, strengths perspective, other - created concreate self-care routine Client Response:: Client responded well to session, open to meeting with therapist. Reports improved mood since last session, attributing this to improve self-care skill application, as well as reduced financial stress. 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 Discussed that this would aid in continuing to encourage her to engage in her passion, as well as provide a more consistent source of income. Client shared wanting to do more research to ensure the opportunity is not a scam as well. Went on to discuss current concerns related to medications, shared feeling Effexor is no longer effective and wanting to reduce Wellbutrin dose. Receptive of meeting with psychiatrist about doing so. Client and therapist spent remainder of session reviewing the self-care skills client attributes to improved mood and identifying strategies for maintaining these gains. Reports needing to utilize opposite action when struggling with urges to isolate. Discussed wanting to more regularly get outside, sharing plans to sit outside and observe nature. Additionally, identified personal hygiene and sleep related activities including changing sheets on the bed and implementing a nightly hot shower or bath into the routine. Identified that this would better relax client and reduce anxiety before bedtime. Risks/Concerns:: Client denies any active suicidal ideations, plan, or intent as of this date. No concerns noted. Progress Toward Goals/Plan:: Progress noted as client reports improved skill utilization and reduced mental health symptoms. Shared reduced isolation and more time engaging in healthy self-care activities. Client discussed ongoing anxiety and concerns regarding medications. Reports wanting to improve consi stency in skill use as well. Will continue IOP tx to maintain gains, continue to reduce isolation, and prevent decompensation. Time Stopped:: 11:53
--- NOTE | 2020-03-13 09:01 | BH.SGPN.GN ---
Behaviors/Verbalizations/Mental Status: []Client alert and oriented, casual dress. Eye contact good. Motor activity appropriate. Speech within normal limits. Mood euthymic. Affect congruent, though difficult to gather due to client wearing mask per [address] guidelines. Thoughts linear, logical, no signs of hallucinations or delusions. Reviewed client?s symptom tracker, no signs of suicidal ideation, plan, or intent as of today. Client Response/Progress/Benefit: []Pt responded well to session, actively engaged throughout and providing input to discussion. 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 Pt went on to identify additional mental health positives to include successfully working through a difficult conversation with her grandmother and processing that with her fianc?. Expressed that in the past she may have avoided or shut down but used thought challenging and opposite action to prevent from doing so. Stressor continues to be multiple physical health ailments which impact her ability to complete daily tasks, however pt identified areas within her control to begin addressing this stressor. Pt was receptive of and appeared to benefit from support provided by the group. Progress noted in pt self-report of improved utilization of opposite action skills and increased ability to sit with discomfort. Will continue IOP tx to increase coping skills which promote mood stability, improve daily functioning, and reduce intensity of symptoms. Narrative Note: []
--- NOTE | 2020-03-18 09:03 | BH.SGPN.GN ---
Behaviors/Verbalizations/Mental Status: []Client alert and oriented, casual dress, client wearing winter cap. Eye contact good. Motor activity appropriate. Speech within normal limits. Mood dysthymic, anxious. Affect congruent, though difficult to gather due to client wearing mask per [address] guidelines. Thoughts linear, logical, no signs of hallucinations or delusions. Reviewed client?s symptom tracker, suicidal ideation reported as a 1/5 which is lower than typical baseline scores of 2/5, denies plan, or intent as of today. Client Response/Progress/Benefit: []Pt responded well to session, actively engaged throughout, providing feedback and input to discussion. Reports feeling tired today as she continues to struggle with poor quality of sleep, however did indicated some improvements when using lavender scents as a sleep aid. Pt did well to identify areas of progress despite ongoing frustrations with sleep which at times impact overall mood. Pt progress identified as increased time spent with supports over the weekend as well as completing the self-care goal she had set for herself to take a hot bath and allow herself some ?me time?. Pt indicated this was a nice break and actually helped improve her mood and sleep on that day. Expressed additionally using positive self-talk and components of self-compassion in managing frustrations associated with chronic pain. Pt receptive of and appeared to benefit from support provided by the group as well as identifying areas of progress. Will continue IOP tx to increase application of coping skills which promote mood stability, improve application of behavior activation skills, and maintain gains made. Narrative Note: []
--- NOTE | 2020-03-18 10:15 | BH.SGPN.GN ---
Behaviors/Verbalizations/Mental Status: []Client alert and oriented, casually dressed and groomed. Eye contact good. Motor activity appropriate. Speech within normal limits. Affect unable to gather due to client wearing a mask for COVID-19 protocol, mood euthymic. Thoughts linear, logical, no signs of hallucinations or delusions. Client Response/Progress/Benefit: []Client was an active participant as shown by contributing to discussion. Client shared connecting to group topic of self-care and commented ?we think taking care of ourselves takes away from others, but that?s not true.? Client helped the group discuss benefits of self-care which included; gain confidence, promote self-love, promotes healthier boundaries, improves mental and physical health, improve relationships, better emotional regulation. Participated in the discussion of the common myths about self-care including self-care is a luxury, unproductive, selfish, takes too much time, self-indulgent, should always be fun, too hard/challenging, and makes a person weak. Client participated in the discussion on debunking of these myths. Client seemed to benefit from increased awareness of the importance of self-care and challenging common myths that prevent practicing self-care. Will continue IOP tx to promote gains, improve mood stability and sleep, as well as reduce negative thinking. Narrative Note: []
--- NOTE | 2020-03-18 12:33 | PCM.BH.PN_ITS ---
Progress Note Progress Note: History of Present Illness/Interim History: [] The patient is a 19-year-old female who is been seen in follow-up at the [facility] behavioral health IOP program. She was last seen 3-1/2 weeks ago. The patient has been taking an increased dose of Wellbutrin (300 mg) for the past 3-1/2 [place]. She states that she feels her mood has improved on the Wellbutrin but she states that she feels tense on this dose of Wellbutrin all the time and does not like how she feels on it. She wishes to decrease her Wellbutrin back down to 150 mg. The patient still feels tired during the day. Her sleep is about 5 hours a night on average and she feels that her restless leg syndrome has gotten worse on the increased Wellbutrin also. And this contributes to her decreased sleep. She has lost about 18 pounds in the last 3 months which was desired weight loss. She did not get her blood work done yet and agrees to try to get this done soon. She denies any active suicidal ideation and has no plan. She denies homicidal ideation, hallucinations or delusions. She also complains of increased sweating lately and she does not feel this is due to the 90 degree weather. Discussion was had about Effexor possibly causing heat flashes and sweating. She wishes to decrease her Effexor dose. Current Psychiatric Medications: [] Wellbutrin XL 300 mg p.o. every morning (since February 19); Effexor XR 225 mg (on this 2 years and last dose increase over 6 months ago). Patient DC'd Remeron about 6 weeks ago. Mental Status Examination: [] The patient is seen wearing a mask due to the COVID pandemic. She is casually dressed and groomed with good hygiene. She is cooperative during the interview and has no psychomotor agitation or retardation. Speech is normal rate and rhythm and fluent. Eye contact is fair to good. Mood is depressed. Affect is full and normal. Thought process is goal-directed and organized. Thought content: Rare passive thoughts of suicide but no evidence of active suicidal ideation, plan, homicidal ideation, hallucinations or delusions. Judgment is intact. Insight is limited. Impulsivity is low. Diagnoses: [] [place] I: [] Major depressive disorder, recurrent, severe, without psychosis; PTSD; generalized anxiety disorder [place] II: [Deferred] [place] III: [] Fibromyalgia, obesity [place] IV:[]] Primary support, work issues Plan: [] Patient will continue the IOP program at [facility] as the structure, support, education, individual and group therapy will hopefully benefit the patient and prevent worsening of her symptoms. She felt safe during the interview and if at any time she does not feel safe she will let us know or go to the emergency room. She agrees to decrease Wellbutrin at her request to 150 mg p.o. every morning. A prescription was sent in for this dose. In addition due to her increased heat flashes lately the Effexor will be decreased to 150 mg p.o. daily. Patient does not wish to start a new medication at this time. She understands that she might feel weird or have a worsening of her symptoms while weaning these medications. That Effexor will be changed over to a different SSRI if the patient tolerates this weaning. She was unable able to tolerate the higher dose of Wellbutrin. I will see the patient in follow-up in 2 weeks or sooner if needed. She will continue to follow-up with outpatient providers.
--- NOTE | 2020-03-19 09:05 | BH.SGPN.GN ---
Behaviors/Verbalizations/Mental Status: [] Eye contact is good. Motor activity is appropriate. Appearance is casual. Speech is Appropriate. Mood is depressed. Affect is flat. Thoughts are linear and logical. No evidence of psychosis. Reviewed daily check in sheet and pt reports 2/5 for suicidal thoughts and 0/5 for intent. Per therapist this is baseline. Client Response/Progress/Benefit: [] Pt was an active participant. Emotion for today is distracted and ambiguous. Shared significant stressors such as mother went through surgery. Notes experiencing dissociative episodes related to this stress. Appears to have some coping skills to help minimize and prevent these episodes which she has been using. Also shared some tension with her extended family due to her sexual orientation which appears to be long-standing. Also noted that she had a conversation with her nephew (who is close to her age) about family drama. Unclear the purpose to bringing this up to her nephew however she reports that what was discussed could have emotional impact on nephew. Group provided support, encouragement, and feedback. Progress noted as she continues to utilize skills. Will continue in IOP to maintain safety, prevent decompensation, and improve functioning. Narrative Note: []
--- NOTE | 2020-03-19 11:20 | BH.SGPN.GN ---
Behaviors/Verbalizations/Mental Status: []Client alert and oriented, casually dressed and grooming appropriate. Eye contact good. Motor activity appropriate. Speech within normal limits. Affect congruent though difficult to determine as client wearing a mask per COVID-19 protocol, mood dysthymic. Thoughts linear, logical, no signs of hallucinations or delusions. Client Response/Progress/Benefit: []Client engaged in session AEB contributing to discussion and providing throughout. Client participated in the continued discussion on what prevents moving on to the ?next chapter? in our life and the importance of problem-solving solutions to address identified barriers. Identifying that convincing ourselves the ?hole? is actually helping us as a potential barrier. Worked with peers to brainstorm the components of A,B,C,D,E problem solving method and various strategies for promoting follow-through in each stage. Client identified negative unhealthy coping and limited effort in skill application as a barrier preventing her from moving to the next chapter in mental health recovery. Shared that by problem-solving these barriers she will feel more confident in her overall ability to maintain progress and continue applying skills learned. Identified using opposite action and having supports hold her accountable as steps she can take in the problem-solving process. Appeared to benefit from learning about problem solving method and practice applying this to personal barriers identified. Progress noted in self-report of increased ability to manage depressive sx and improved skill application. Continues to struggle with distorted thought patterns. Will continue IOP tx to prevent decompensation, maintain gains, and continue to promote healthy change behaviors. Narrative Note: []
--- NOTE | 2020-03-25 10:15 | BH.SGPN.GN ---
Behaviors/Verbalizations/Mental Status: [] Eye contact is good. Motor activity is appropriate. Appearance is casual. Speech is Appropriate. Mood is depressed. Affect is flat. Thoughts are linear and logical. No evidence of psychosis. Client Response/Progress/Benefit: [] Pt was an active participant in group discussion and was engaged in group. Pt worked with the group to define growth in terms of mental health wellness and then identified events that can lead to growth which include; change in perspective, increased knowledge, accountability, and support/encouragement. Pt also worked together with peers to identify and define internal and external forces in mental health and their role in growth. Provided insight and suggestions during group psychoeducation on examples and impact of negative/positive internal and external forces. Progress noted in regards to increase knowledge and insight on role of internal/external forces on mental health. Will continue in IOP to maintain safety, prevent decompensation, and improve functioning/consistent use of healthy coping skills. Narrative Note: []
--- NOTE | 2020-03-25 11:14 | BH.SGPN.GN ---
Behaviors/Verbalizations/Mental Status: [] Eye contact is good. Motor activity is appropriate. Appearance is casual. Speech is Appropriate. Mood is euthymic. Affect unable to assess as client wearing a mask per COVID-19 protocol. Thoughts are linear and logical. No evidence of psychosis. Client Response/Progress/Benefit: [] Pt receptive of session, actively engaged in activity and group discussion. Worked with group to process the activity and connect negative forces in the task with those experienced in their own lives. Pt identified personal negative forces impacting mental health progress to include: negative self-talk, chronic illness/pain, the government and focusing on political issues, disorganization, and lack of motivation. Group then worked together to identify common positive forces in activity and life which help us grow. Pt personal positive forces included: healthy supports, resilience, spirituality, positive coping skills such as self-talk, willingness to change, and introspection. Pt was attentive during psychoeducation and appeared to benefit from increased insight on the impact of negative and positive forces on mental wellness. Identified wanting to improve her focus on willingness to change and motivation by more actively practicing opposite action skills. Progress noted in self-report of improved ability to recognize and utilize healthy skills, as well as her improved use of thought challenging. Pt recommended continued IOP tx to maintain gains, improve symptom management, and continue to work on mood management. Narrative Note: []
--- NOTE | 2020-03-25 15:22 | BH.MDN_ITS ---
Multi-Disciplinary Note - Note 45-min Individual Time Started:: 09:26 Date: 03/25/20 Purpose of session/treatment goals addressed:: The purpose of this session was to address tx goals, as well as assess current symptoms and stressors. Eye Contact:: Good Motor Activity:: Appropriate Appearance:: Casual Speech:: Appropriate Mood:: Euthymic, Anxious Affect:: Full Thoughts:: Linear, Logical, No evidence of hallucinations/delusions noted Staff Interventions:: motivational interviewing, CBT techniques - reviewed strategies for maintaining gains and continuing to promote thought challenge skill application in the moment, strengths perspective Client Response:: Client engaged throughout session, actively sharing progress and areas of personal growth. Client discussed feeling positive today, despite some difficulties in adjusting to the recent medication changes. Shared that their body is often medication sensitive and struggles to adjust when a dosage is slightly changed; however, client reports doing well to prepare herself and take it easier over the last few days as a result. Discussed spending more time with family over the past several days as client?s mother is recovering from a recent surgery and client has been helping her. Shared this has been positive as client and their mother get along well. Client reports their sister is also visiting which is an additional positive as they do not get to spend time to gether often. Went on to discuss doing well to better manage times when client is alone and that these have felt overall ?less lonely?. Shared use of positive self-talk and reaching out to supports for encouragement which has been helpful. Commended client for progress and discussed strategies for maintaining these gains. Reported that positive self-talk and daily goals would be most helpful in continuing to maintain gains made. Risks/Concerns:: Client denies any active suicidal ideations, plan, or intent as of this date. No concerns noted. Progress Toward Goals/Plan:: Progress noted as client continues to report improved skill utilization and reduced mental health symptoms. Shared continuing to make efforts to reach out to supports and is more actively engaging in regular self-care. Discussed continued difficulties with negative thoughts at times but is seeing improvements in overall ability to identify and challenge these in the moment. Reports plans to make small daily goals to continue to maintain gains made. Will continue IOP tx to continue to reduce isolation, promote healthy change behaviors, and maintain mood stability. Time Stopped:: 10:06
--- NOTE | 2020-03-27 09:00 | BH.SGPN.GN ---
Behaviors/Verbalizations/Mental Status: [] Eye contact is good. Motor activity is appropriate. Appearance is neat. Speech is Appropriate. Mood is depressed. Affect is flat. Thoughts are linear and logical. No evidence of psychosis. Reviewed daily check in sheet and no reports of suicidal ideations or intent. Client Response/Progress/Benefit: [] Pt was an active participant in group discussion. Emotion for today is tired. States my body decides when I sleep. Continues to struggle to stabilize her sleep schedule stating I'm not getting goof REM sleep. Group provided feedback on topic of sleep and encouraged her to discuss this further with her PCP to see if a sleep study would be necessary. Pt states overall things are good. Working on opposite action and is getting stuff done. Insight into her progress and improved mood since starting IOP. Benefited from group support, encouragement, and feedback. Will continue in IOP to prevent decompensation, maintain safety, and improve health coping strategies. Narrative Note: []
--- NOTE | 2020-03-27 10:15 | BH.SGPN.GN ---
Behaviors/Verbalizations/Mental Status: [] Client alert and oriented, casually dressed and groomed. Eye contact good. Motor activity appropriate. Speech within normal limits. Affect unable to gather due to client wearing a mask as a COVID protocol, mood euthymic. Thoughts linear, logical, no signs of hallucinations or delusions. Client Response/Progress/Benefit: []Client was an active participant AEB providing input, listening attentively to others, and taking notes. Contributed to discussion of the quote and stated she could connect with the importance of learning ways to sit with uncomfortable feelings. Client shared being able to do this can ?decrease the amount of anxiety you experience next time you face something similar?. Client connected with discussion on the difference between ?normal? anxiety and when anxiety becomes problematic. Discussing that problematic anxiety can be identified by noticing if there is a negative impact on your ability to do the things you usually do. Client gained awareness of personal physical symptoms of anxiety which included: exhaustion, chest pressure, headaches, digestive issues, muscle pains, and restlessness. Client also identified safety behaviors used when feeling anxious. These safety behaviors included; canceling plans, disengaging, unhealthy distractions, and blocking things out. Client appeared to benefit from gaining insight to physical signs of anxiety and personal safety behaviors. Progress noted in self-report of improved self-talk and increased use of opposite action skills. Will continue IOP to increase consistent application of healthy coping skills, continue to improve depression management, and promote gains. Narrative Note: []
--- NOTE | 2020-03-27 11:15 | BH.SGPN.GN ---
Behaviors/Verbalizations/Mental Status: [] Eye contact is good. Motor activity is appropriate. Appearance is casual. Speech is Appropriate. Mood is anxious. Affect is congruent. Thoughts are linear and logical. No evidence of psychosis. Client Response/Progress/Benefit: [] Pt was an active participant in group discussion and provided insight on group topic. Attentive during psycho-education on mindfulness coping skills and their impact on her mental health wellness. Pt was able to identify self-soothing, mind-based, and body-based coping skills she wants to incorporate into her current coping skills, The skills she choose were sitting out in nature, journaling, meditate, learn new skill, physical activity, progress muscle relaxation, stretching, and grounding. Progress noted. Receptive to incorporating new skills. Will continue in IOP to maintain safety, increase healthy coping skills, and prevent decompensation. Narrative Note: []
== END 2020-03-27 23:59 ==
LOC: BHIOP 09:00
PROVIDERS: PCP Family Medicine; Referring Provider Psychiatry & Neurology Psychiatry; Visit Provider Psychiatry & Neurology Psychiatry
DX: F33.2 Major depressive disorder, recurrent severe without psychotic features (principal); F43.10 Post-traumatic stress disorder, unspecified; F41.1 Generalized anxiety disorder; M79.7 Fibromyalgia; E66.9 Obesity, unspecified; Z79.899 Other long term (current) drug therapy
CPT/HCPCS: H0035; 90834; 90837; 90853

== ENCOUNTER 2020-04-01 09:00 | Outpatient (RCR) | payer BC, SELFPAY ==
[2020-03-28 00:36] VITALS: BP 140/84; PULSE 84
--- NOTE | 2020-04-01 11:53 | PCM.BH.PN ---
Progress Note Progress Note: History of Present Illness/Interim History: [] The patient is a 19-year-old female who is seen in follow-up at the [facility] behavioral health IOP program. I last saw the patient 2 weeks ago. At that time we began weaning the Effexor 250 mg/day and we decreased the Wellbutrin 250 mg p.o. every morning because the patient had side effects on the 300 mg of Wellbutrin. She states that she is overall doing well during the weaning process. Her mood is pretty good overall. She is tolerating the weaning well. Patient says she has some increased sleepiness now but her sleep remains decreased at night. However she says she is sleeping a total of 9 to 10 hours at night. She still complains of sweating and hot flashes which she believes are still due to the Effexor. Her mood is improved and her anxiety remains improved and stable. She no longer feels tense on the Wellbutrin and is tolerating this dose well. She feels the Wellbutrin has helped her mood somewhat. Patient would like to continue to wean the Effexor and she was offered to start crossover and start another medication to help with her anxiety but the patient refuses this and wishes to continue the wean. She expresses interest in TMS down the road. Current Psychiatric Medications: [] Wellbutrin XL 150 mg p.o. every morning (decreased from 300 mg x2 weeks); Effexor XR 150 mg p.o. daily (decreased from 225 mg 2 weeks ago); patient DC'd Remeron about 8 weeks ago. Mental Status Examination: [] Patient is a 19-year-old female who is seen via telehealth due to the pandemic. She is casually dressed and groomed with good hygiene. She appears normal for stated age. She is cooperative during the interview and has no psychomotor agitation or retardation. Eye contact is good and speech is normal rate and rhythm and fluent with no pressure. Mood is mildly depressed or euthymic. Affect is full and normal. Thought process is goal-directed and organized. Thought content: Denies any thoughts of suicide. No evidence of suicidal ideation, plan, homicidal ideation, hallucinations or delusions. Judgment is intact. Insight is limited but improving. Impulsivity is low. Diagnoses: [] Enloe I: [] Major depressive disorder, recurrent, severe, without psychosis; PTSD; generalized anxiety disorder Enloe II: [] Deferred Enloe III: [] Fibromyalgia, obesity Enloe IV:[]] Primary support, work issues Plan: [] The patient will continue the IOP program at [facility] as the structure, support, education, group and individual therapy will hopefully continue to prevent worsening of the patient's symptoms which might require hospitalization. She felt safe during the interview and if at any time she does not feel safe she will let us know or go to the emergency room. The risks, options, possible complications and side effects of the medication were discussed with the patient and she understands and accepts these. She agrees to continue her Wellbutrin at 150 mg p.o. every morning as she feels good on this dose. In addition the patient is very motivated to wean the Effexor completely. She feels that it is causing her increased sweating and hot flashes and this is a known side effect of Effexor. She agrees to decrease her Effexor to 75 mg p.o. daily. She has them at home so no prescription was sent in. She understands that she might feel weird or her condition may worsen during the weaning of her Effexor. She would like to try to discontinue the Effexor in the next month or so. I discussed with the patient that I would request that she not discontinue the Effexor until she is seeing her new outpatient provider. The patient is scheduled to finish our program in a week or 2. The patient did not get her blood work yet and she may want to wait and get it done with her outpatient provider. She understands that we would like to see if her thyroid and vitamin D levels are normal.
--- NOTE | 2020-04-03 10:20 | BH.SGPN.GN ---
Behaviors/Verbalizations/Mental Status: [] Client alert and oriented, casually dressed and appropriately groomed. Eye contact good. Motor activity appropriate. Speech within normal limits. Affect congruent, mood euthymic. Thoughts linear, logical, no signs of hallucinations or delusions. Client Response/Progress/Benefit: []Pt was an active participant in group and provided input throughout discussion. Connected with the topic of obstacles and solutions and worked with group to identify common internal and external barriers that keep people stuck. Group identified; self-doubt, negative thinking, unhealthy coping skills, poor boundaries, and lack of motivation as potential internal barriers that could prevent progress towards a better quality of life. Pt shared current reality as ?struggling to carry the weight of everything?. Noted feeling as though she is carrying a large boulder around with her and is finding it to be exhausting. Shared that she continues to make progress, but often has to fight to keep herself working on using her skills. Pt's realistic, desired reality is for her boulder to fit into a handbag so it is more easily managed and has less of an impact on her. Benefited from group as client was able to identify current mental health state and impact of internal barriers on progress. Progress noted in pt improved ability to use opposite action and self-report of improved overall mood. Will continue IOP tx to promote change behaviors, increase application of healthy coping skills, as well as improve functioning. Narrative Note: []
--- NOTE | 2020-04-03 11:20 | BH.SGPN.GN ---
This psychotherapy group was provided via telehealth using two-way, real-time interactive telecommunication technology between the patients and the provider. The interactive telecommunication technology included audio and video. The patient was offered telemedicine as an option for care delivery during the COVID-19 pandemic and consented to the option. Patient location: [place]. Provider located at [facility] Behaviors/Verbalizations/Mental Status: []Client alert and oriented, neatly dressed and groomed. Eye contact good. Motor activity appropriate. Speech within normal limits. Affect congruent, mood slightly dysthymic. Thoughts linear, logical, no signs of hallucinations or delusions. Client Response/Progress/Benefit: []Client was an active participant in group discussion and attentive during the activity. Engaged during activity and provided ideas on how to cope with internal barriers that keep clients stuck from moving towards goals. Barriers identified by client were: chronic fatigue, lack of motivation, and dysmorphia. Group helped identify strategies to combat barriers identified by group members. Client reported she wants to work on overcoming her barrier of fatigue. Client shared she plans to do this by opposite action and asking others to hold her accountable. Benefited from group by identifying obstacles and solutions to desired reality. Progress noted in client?s increased self-awareness of barriers. Will continue IOP tx to promote gains made in reducing the intensity of her depression, but client can continue to improve mood stability. Narrative Note: []
--- NOTE | 2020-04-09 11:10 | BH.SGPN.GN ---
This psychotherapy group was provided via telehealth using two-way, real-time interactive telecommunication technology between the patients and the provider. The interactive telecommunication technology included audio and video. The patient was offered telemedicine as an option for care delivery during the COVID-19 pandemic and consented to this option. Patient location: [place] Provider located at [facility] Behaviors/Verbalizations/Mental Status: []Client alert and oriented, casually dressed and groomed. Eye contact good. Motor activity appropriate. Speech within normal limits. Affect congruent, mood euthymic. Thoughts linear, logical, no signs of hallucinations or delusions. Client Response/Progress/Benefit: []Client an active participant AEB contributing to discussion throughout, though at times appearing to struggle with becoming distracted by her own environment. Client participated in group activity highlighting the various barriers to effectively utilizing supports and strategies for promoting effective use. Shared that over reliance on herself can be a barrier. Client participated in discussion reviewing strategies to improve overall use of current supports as well as how to begin building new supports. Client identified she would like to remind herself that it?s okay to reach out to supports and make more of an effort to communicate her needs to them. Noted that this will improve her relationships as well as improve ability to be supported by others. Client seemed to benefit from identifying a strategy for improving support she would like to begin implementing in her own life. Progress noted by client's improved ability to challenge negative thinking patterns and begin implementing opposite action to promote continued progress. Client to continue in IOP tx to continue to promote healthy change behaviors, further improve anxiety management, and maintain gains made. Narrative Note: []
--- NOTE | 2020-04-09 18:42 | BH.MDN_ITS ---
Multi-Disciplinary Note - Note 30-min Individual Time Started:: 09:31 Date: 04/09/20 Purpose of session/treatment goals addressed:: The purpose of this session was to assess current symptoms, stressors, and treatment progress. Another purpose was to review aftercare plan and identify strategies for success following discharge. Symptoms/Behavior:: This counseling session was provided via telehealth using two-way, real-time interactive telecommunication technology between the patient and the clinician. The interactive telecommunication technology included audio and video. The patient was offered telehealth as an option for care delivery during the COVID-19 pandemic and consented to this option. Patient location: [place]. Provider located at [facility] Eye Contact:: Good Motor Activity:: Appropriate - though difficult to assess as pt attending via telehealth Appearance:: Casual Speech:: Appropriate Mood:: Euthymic Affect:: Congruent Thoughts:: Linear, Logical, No evidence of hallucinations/delusions noted Staff Interventions:: Therapist asked open ended and furthering questions to elicit information regarding client perception of current symptoms, stressors, application of coping skills, and treatment goal progress. Provided supportive feedback and used strengths-based approaches to assist pt in identifying areas of progress. Used GA techniques to promote healthy change behaviors and aid Pt i n identifying barriers as well as strategies for ongoing tx progress. Worked with pt to review discharge planning. Client Response:: Client was receptive of session and remained engaged throughout. She shared feeling things have been ?more up and down? over the past week. Attributes this to feeling physically worn down which resulted in client taking more time to rest. Noted that although she was unable to engage in some of the activities she would usually do, she did well to apply opposite action and encourage herself to create more art during her downtime. Client went on to note she had been experiencing increased anxiety earlier this week. Identified her increased sx are related to self-doubt and distorted thoughts about a current relationship. Noted that usually this would lead to increased rumination; however, she did well to use her supports to challenge her distortions and gain additional perspective. Reports this as personal progress and discussed additional areas in which she has made gains since beginning IOP treatment. Client identified progress in her ability to identify and implement calming skills when feeling anxious or emotionally charged, increased use of opposite action to encourage herself to get outside more, continue to work on her art, and practice grounding on a consistent basis. Additionally identified beliefs her personal boundaries have improved as she indicates ?I?m not taking on other?s stuff so much? and is more capable of listening to supports rather than always having to offer solutions. Client noted that she continues to struggle with confidence at times, specifically related to body and gender dysmorphia. As well as noted ongoing anxiety when beginning new relationships and a desire to seek out more trauma specific treatment. Client identified multiple skills she may use during times of increased anxiety or when noticing warning signs for depression. Willing to review discharge plans with therapist. Client expressed no longer wanting to attend the weekly aftercare program as she feels ?capable of handling things without it for right now?. Client was encouraged to continue with weekly outpatient counseling and expressed plans to do so. Indicated she will be contacting either [facility] or [facility] to begin outpatient counseling as she is currently established with [facility] in [place], however would like to find an option in the [place] area. Risks/Concerns:: No risks or concerns noted. Pt denies any active SI, plan, or i ntent as of this date. 04/09/20. Progress Toward Goals/Plan:: Progress noted. Client shared continued improvements in overall depression and anxiety management. She expressed an increased ability to manage her chronic pain symptoms without isolating or preventing herself from engaging in activities she enjoys. Client additionally shared that she is doing better to challenge her negative or distorted thoughts and is more actively utilizing supports in order to do so. Pt to discharge from program given progress and is to continue outpatient tx with either [facility] or [facility] as her current agency is further than client would like to travel. [facility]. Time Stopped:: 09:58
--- NOTE | 2020-04-09 19:12 | BH.DS ---
Discharge Summary - Demographics Date of Admission:: 02/14/20 Discharge Date: 04/09/20 Presenting Problems at Admission:: Pt is a 19 year old female how was referred to the IOP program due to worsening sx of depression and anxiety. Pt has a history of depression and anxiety and PTSD and was referred to the [facility] by her primary care physician for worsening symptoms. At time of admission, pt reported that her current MH symptoms were interfering with her ability to function at baseline. Pt reported difficulties in reaching out to social supports on a consistent basis due to isolative behaviors, difficulties in maintaining anxiety regarding her current relationships, difficulties with sleep and pain management resulting in increased difficulties in maintaining focus and motivation, financial strain, and difficulties completing daily responsibilities. 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 Pt also reported chronic physical ailments which impacted energy and motivation levels. Discharge Diagnoses:: Major depressive disorder recurrent severe without psychosis; PTSD; generalized anxiety disorder. Reason for Discharge:: Pt has made progress in treatment and no longer meets medical necessity for [facility] level of care. - Treatment Progress During Treatment & Response: Pt has made progress in treatment AEB self-report and DSM-5 cross-cutting scores. Pt reports an overall reduction of mental heal sx, as well as increased ability to successfully manage her physical pain related sx without her mental health being significantly impacted. Per pt, she noted a reduction in sx of anxiety, depression, and negative thought patterns which have resulted in increased depression and isolation in the past. At time of discharge, pt reported feeling more capable of recognizing warning signs and managing her symptoms through use of calming skills, opposite action, reaching out to supports, and positive self-talk. Pt progress can additionally be noted in reduction of overall DSM-5 scores from admission to discharge. Scores indicate overall reduction of sx by 24%. Anxiety specific sx indicated a 25% reduction and depression reduced by 75%. While in the IOP program pt remained an active participant in group therapy providing input throughout and engaging in activities. Pt often completed assigned homework and participated in discussion throughout individual counseling. Attendance remained mostly consistent, though pt did cancel around 1x/week due to physical pain related issues; however, did well to usually reschedule or attend via telehealth. At times pt struggled with consistency of skill application as well as minimization. She is encouraged to continue to work on these areas in outpatient to maintain gains made and prevent decompensation. Issues Still to be Addressed:: Pt could benefit from continued focus on reinforcing healthy coping skills, challenging distorted thoughts, and increased implementation of small goals to encourage continued progress. Pt could also benefit from trauma specific counseling to continue to focus on processing and learning skills for improving ability to cope with trauma triggers. Also recommended counseling focusing on issues related to dysmorphia, as this is an area of ongoing difficulty for her. Discharge Recommendations/Instructions:: 1. Continue with ongoing psychiatry services through [facility]. Be sure to follow-up with with Miguel Llamas or Larry about pursuing outpatient counseling services and inquire about trauma specific treatment. 2. Aftercare program will continue to he available with [facility]. This can be helpful for continued maintenance. Discharge Handout: Complete Discharge Handout with client on aftercare options and continuity of care.
--- NOTE | 2020-04-09 19:35 | BH.IGGP_ITS ---
Aftercare Plan - Demographics Treatment End Date:: 04/09/20 Psychiatrist:: Dalia Dozier Psychiatrist Office #:: [phone] [facility]/IOP Therapist:: Tosha Queen Therapist Phone #:: [phone] - Medications Home Medications: Home Medications Desogestrel-Ethinyl Estradiol [Enskyce 28 Tablet] 1 tab PO DAILY 02/19/20 Effexor Xr 75 mg PO DAILY 02/19/20 Ibuprofen/Famotidine [Duexis 800-26.6 mg Tablet] 1 tab PO TID PRN 02/19/20 Loratadine [Claritin] 10 mg PO DAILY PRN 02/19/20 Prazosin HCl 2 mg PO QHS 02/19/20 Vitamin B12 1,000 mcg PO QODAY 02/19/20 Vitamin D3 5,000 unit PO DAILY 02/19/20 Bupropion HCl [Wellbutrin Xl] 150 mg PO BREAKFAST 30 Days #30 tab.er.24h 03/18/20 - Plan Details Progress/Aftercare Plan Details:: ?You have shown a decrease in negative and self-sabotaging thoughts that have previously impacted your mood, motivation levels, and ability to effectively cope with depressive and pain related symptoms in the past. ?Increased use of your internal coping skills such as opposite action, self-compassion, practicing acceptance, and challenging yourself to use a more positive outlook daily. ?Improved use of calming skills and taking breaks when you?ve felt emotionally heavy, stressed, or experiencing increased physical pain. ?Successfully able to continue to reach out to supports and challenge yourself to be more receptive of help from your supports. ? Increased engagement in healthy activities you enjoy and setting small meaningful goals for yourself. You did a great job of regularly checking-in with yourself and asking yourself ?what do I really need here??. Keep doing this, even when it?s hard to do! Strategies for Success:: ?Opposite Action!!! ? do what will help you, even when your brain is saying don?t do it, even when it feels uncomfortable, even when you are tempted to take the easy or more comfortable way out. ?Setting and following through with boundaries with yourself and others ? remember not to take on things that may be causing you unnecessary extra stress. It?s okay to not fix things for others sometimes. You can still be a support to others and no t take on everything for yourself. ?Continue to challenge negative thought patterns by trying to look at things from the other perspective, asking yourself ?Am I using a distortion?? or ?Is there another way to approach or think about this??. ?Keep reaching out to HEALTHY friends and supports! There are people who care and want to see you doing well! Remember, it?s okay to ask for help. We all need it from time to time. Remember, your supports are there for you to reach out to. ?Continue to make time for yourself! Self-care is solorzano to maintaining progress and staying level! This includes sometimes doing those hard things that may require setting boundaries of using opposite action. Remind yourself you deserve to take time to care for you AND ASK YOURSELF ?What would I be losing if I didn?t do this for myself??. ?Small steps to physical, mental, and emotional wellness. Check-in with yourself regularly in order to identify what may be stressing you out, allow yourself to take small breaks if you find yourself getting overwhelmed. Don?t forget to keep setting SMART goals! - Appointments Appointments/Referrals to Other Services:: 1. Continue with ongoing psychiatry services through . Be sure to follow-up with with Miguel Llamas or Larry about pursuing outpatient counseling services and inquire about trauma specific treatment. 2. Aftercare program will continue to he available with [facility]. This can be helpful for continued maintenance.
--- NOTE | 2020-04-10 09:05 | BH.SGPN.GN ---
Behaviors/Verbalizations/Mental Status: [] Eye contact is good. Motor activity is appropriate. Appearance is casual. Speech is Appropriate. Mood is depressed. Affect is flat. Thoughts are linear and logical. No evidence of psychosis. Reviewed daily check in sheet and no reports of suicidal ideations or intent. Client Response/Progress/Benefit: [] Pt participated when prompted. Emotion for today is nervous. Shared with the group that today is her last day in IOP. Reports that she has been utilizing skills, supports, and setting boundaries in the past few days. States I'm not taking on other people's problems. Discussed how this is beneficial to her mental health. Talked about the ups and downs while in IOP. She recently decided to seek a new therapist and has been researching this. Also decided not to complete [facility]'s skills group at discharge. Progress noted. Today will be last day in IOP. Narrative Note: [] This psychotherapy group was provided via telehealth using two-way, real-time interactive telecommunication technology between the patients and the provider.?The interactive telecommunication technology included audio and video.? ?The patient was offered telemedicine as an option for care delivery during the COVID-19 pandemic and consented to this option. ?Patient location: [place] ?Provider located at [facility]
--- NOTE | 2020-04-10 10:14 | BH.SGPN.GN ---
This psychotherapy group was provided via telehealth using two-way, real-time interactive telecommunication technology between the patients and the provider. The interactive telecommunication technology included audio and video. The patient was offered telemedicine as an option for care delivery during the COVID-19 pandemic and consented to this option. Patient location: [place] Provider located at [facility] Behaviors/Verbalizations/Mental Status: []Client alert and oriented, neatly dressed and groomed. Eye contact fair-distracted at times. Motor activity appropriate. Speech within normal limits. Affect congruent, mood euthymic. Thoughts linear, logical, no signs of hallucinations or delusions. Client Response/Progress/Benefit: []Client responded somewhat well to session, distracted at times and disengaging. Client connected with the topic of relationships and shared ?relationships keep us sane? it?s someone to talk to.? Client helped group discuss the benefits of relationships as well as the different types of relationships one can have. Group identified the risk factors for unhealthy relationships which included: substance abuse, low self-esteem, childhood trauma, cycle of abuse, and negative core beliefs. Client helped group develop a list of the consequences that unhealthy relationships have on mental health. These included: poor boundaries, increased depression and anxiety, and negative self-talk. Client shared she has had unhealthy partners in the past which has negatively impacted client?s mental health. Appeared to benefit from increasing awareness of the impact unhealthy relationships can have on mental health. Progress noted AEB client?s self-report of improved mood stability. Will continue IOP tx to promote use of healthy coping skills, further reduce depressive symptoms, and improve daily functioning. Narrative Note: []
--- NOTE | 2020-04-10 11:13 | BH.SGPN.GN ---
Addendum entered and electronically signed by Tosha Queen LSW 04/10/20 15:18: This psychotherapy group was provided via telehealth using two-way, real-time interactive telecommunication technology between the patients and the provider. The interactive telecommunication technology included audio and video. The patient was offered telemedicine as an option for care delivery during the COVID-19 pandemic and consented to this option. Patient location: [place] Provider located at [facility] Original Note: Behaviors/Verbalizations/Mental Status: []Client alert and orient. Appearance casual and appropriately groomed. Speech an appropriate rate and tone. Motor activity WNL. Mood euthymic, affect euthymic. No evidence of delusion or hallucinations.? Client Response/Progress/Benefit: []Client receptive of group, engaged during activity which challenged the group to identify heathy vs. unhealthy behaviors and characteristics of relationships. Expressed agreement that identifying the health of a relationship is more difficult outside treatment environment. Noted that limited insight can prevent recognizing unhealthy relationships. Client worked with the group to brainstorm potential strategies for improving own ability to identify whether a relationship is healthy. Strategies for improving insight included: determine if your values align or if you feel you must compromise your own personal values, ask yourself ?is there mutual respect and understanding in the relationship??, take notice of if boundaries are respected, reflect on whether you are supportive of one another during difficult times, and ask yourself ?How do I feel when I am around this person??. Client identified plans to reflect on whether she feels comfortable enough to voice her own opinion in a relationship to improve insight regarding the health of the relationship. Client appeared to benefit from increasing awareness of healthy vs. unhealthy relationships. Progress noted in client reports of improved mood and increased application of internal boundary setting through opposite action. Client to discharge from [facility] tx given progress made and is encouraged to continue with outpatient counseling to continue to promote gains, further improve symptom management, and promote maintenance. Narrative Note: []
== END 2020-04-27 23:59 ==
LOC: BHIOP 09:00
PROVIDERS: PCP Family Medicine; Referring Provider Psychiatry & Neurology Psychiatry; Visit Provider Psychiatry & Neurology Psychiatry
DX: F33.2 Major depressive disorder, recurrent severe without psychotic features (principal); F43.10 Post-traumatic stress disorder, unspecified; F41.8 Other specified anxiety disorders; Z79.899 Other long term (current) drug therapy; M79.7 Fibromyalgia; E66.9 Obesity, unspecified
CPT/HCPCS: H0035; 90832; 90853

== ENCOUNTER 2020-04-13 16:33 | Outpatient (RCR) | payer BC, SELFPAY ==
[2020-04-13 17:13] LABS: Absolute Lymphocyte Count 3.36 X10^3/uL (0.83-4.51); Absolute Neutrophil Count 8.8 X10^3/uL (2.0-7.7); Basophil# 0.07 X10^3/uL; Basophil% 0.5 % (0-1); Eosinophils% 1.5 % (0-5); Hematocrit 45.4 % (37-47); Hemoglobin 14.1 g/dL (12.0-15.0); Lymphocyte # 3.36 X10^3/ul (4.0); Lymphocyte % 25.7 % (19-41); Mean Corp Hgb Conc 31.1 g/dL (32-36); Mean Corpuscular Hgb 28.5 pg (27.0-32.0); Mean Corpuscular Volume 91.7 fL (81-99); Mean Platelet Vol. 11.9 fl (6.2-12.0); Monocyte# 0.62 X10^3/uL; Monocyte% 4.7 % (0-10); NRBC Flagged by Analyzer 0 % (0-5); Neutrophil # 8.77 X10^3/uL (2.7-7.7); Neutrophil % 67.2 % (47-70); Platelet Count 403 K/mm3 (150-450); RBC Distribution Width CV 13.4 % (11.6-14.6); RBC Distribution Width SD 45.3 fl (35.1-43.9); Red Blood Count 4.95 M/mm3 (4.2-5.4); White Blood Count 13.1 K/mm3 (4.4-11.0)
[2020-04-13 17:29] LABS: AST(SGOT) 28 U/L (15-37); Alanine Aminotransfer ALT/SGPT 33 U/L (13-56); Creatinine, Serum 0.88 mg/dL (0.55-1.02); EST Glomerular Filtration Rate 86 mL/min (>60); Est Glom Filt Rate - Afr Amer 104 mL/min (>60); Uric Acid 6.3 mg/dL (2.6-6.0)
== END 2020-04-27 18:00 | disposition home or self-care (01) ==
LOC: LAB 16:33
PROVIDERS: PCP Family Medicine; Referring Provider Internal Medicine Rheumatology; Visit Provider Internal Medicine Rheumatology
DX: E79.0 Hyperuricemia without signs of inflammatory arthritis and tophaceous disease (principal); M79.7 Fibromyalgia; Z79.1 Long term (current) use of non-steroidal anti-inflammatories (NSAID); Z82.69 Family history of other diseases of the musculoskeletal system and connective tissue
CPT/HCPCS: 36415; 82565; 84450; 84460; 84550; 85025; 86140

== ENCOUNTER → 2020-05-01 15:12 | Outpatient (CLI) | payer BC, SELFPAY ==
[2020-05-01 18:08] LABS: Absolute Lymphocyte Count 2.45 X10^3/uL (0.83-4.51); Absolute Neutrophil Count 2.8 X10^3/uL (2.0-7.7); Basophil# 0.05 X10^3/uL; Basophil% 0.8 % (0-1); Eosinophil# 0.14 X10^3/uL; Eosinophils% 2.4 % (0-5); Hematocrit 43.1 % (37-47); Hemoglobin 13.7 g/dL (12.0-15.0); Lymphocyte # 2.45 X10^3/ul (4.0); Lymphocyte % 41.5 % (19-41); Mean Corp Hgb Conc 31.8 g/dL (32-36); Mean Corpuscular Hgb 29.5 pg (27.0-32.0); Mean Corpuscular Volume 92.9 fL (81-99); Mean Platelet Vol. 13.4 fl (6.2-12.0); Monocyte# 0.48 X10^3/uL; Monocyte% 8.1 % (0-10); NRBC Flagged by Analyzer 0 % (0-5); Neutrophil # 2.77 X10^3/uL (2.7-7.7); Platelet Count 278 K/mm3 (150-450); RBC Distribution Width CV 13.4 % (11.6-14.6); RBC Distribution Width SD 45.6 fl (35.1-43.9); Red Blood Count 4.64 M/mm3 (4.2-5.4); White Blood Count 5.9 K/mm3 (4.4-11.0)
[2020-05-01 18:18] LABS: Erythrocyte Sedimentation Rate 12 mm/hr (0-20)
[2020-05-01 18:25] LABS: AST(SGOT) 39 U/L (15-37); Alanine Aminotransfer ALT/SGPT 55 U/L (13-56); CRP < 2.90 mg/L (0.0-3.0); Creatinine, Serum 0.93 mg/dL (0.55-1.02); EST Glomerular Filtration Rate 80 mL/min (>60); Est Glom Filt Rate - Afr Amer 97 mL/min (>60); Uric Acid 5.6 mg/dL (2.6-6.0)
== END ==
PROVIDERS: PCP Family Medicine; Referring Provider Family Medicine
DX: E79.0 Hyperuricemia without signs of inflammatory arthritis and tophaceous disease (principal); D72.829 Elevated white blood cell count, unspecified; M79.7 Fibromyalgia; R20.2 Paresthesia of skin; Z79.52 Long term (current) use of systemic steroids; Z79.1 Long term (current) use of non-steroidal anti-inflammatories (NSAID); Z79.899 Other long term (current) drug therapy; Z82.69 Family history of other diseases of the musculoskeletal system and connective tissue
CPT/HCPCS: 36415; 82565; 84450; 84460; 84550; 85025; 85652; 86140

== ENCOUNTER → 2020-07-24 12:41 | Outpatient (CLI) | payer BC, SELFPAY ==
[2020-07-24 15:03] LABS: AST(SGOT) 18 U/L (15-37); Alanine Aminotransfer ALT/SGPT 33 U/L (13-56)
== END ==
PROVIDERS: PCP Family Medicine; Referring Provider Internal Medicine Rheumatology; Visit Provider Internal Medicine Rheumatology
DX: R94.5 Abnormal results of liver function studies (principal)
CPT/HCPCS: 36415; 84450; 84460

== ENCOUNTER 2021-03-10 13:30 | Outpatient (RCR) | payer BC, SELFPAY ==
--- NOTE | 2020-11-18 14:11 | HP.PTEVAL_ITS ---
Patient's Visit Information JORDY ALAN is a 20 year old F referred to Physical Therapy by FIDEL SANTARCUZ with a diagnosis of Paresthesia and pain of both upper extremities. Date of Evaluation: 11/18/20 Physical Therapist: Hayder Palacios, PT, ATC - Visit Plan Frequency: 2x /Week Duration: 4 Weeks Plan: Scapular strengthening, core strengthening, improving posture, UBE, HEP - Subjective Pt is a 20 year old female with neck pain. She is a freelance artist. Pt reports pain in arms and hands started 6 yrs ago and dx mild carpal tunnel. She has braces for them. concerning to her because it goes up shoulder and into neck. Had PT on arm in past and didnt seem to work. Dx with fibromyalgia in 2019. Also dx with arthritis in legs. EMG on both arms dx with mild carpal tunnel in Rt arm 10 mo ago and pain hasnt stopped since. Mother has DDD and lupus. Rt arm numbness and tingling is worse in R than L. R hand dominant. Has numbness and tingling in L shoulder blade and thinks a rib is out of place. She reports shoulder pain bilaterally with inflammation, tension BARROW, and muscle pain in shoulders. 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 Pain is affecting her most at night time and at the end of her shifts but more notably in LE. Pain keeps her from sleeping at times, she has a cervical pillow to use. - Pain Bilateral shoulders/arms Pain Intensity (Out of 10): 3 Pain Intensity Range: 3, 10 - Objective ROM: WNL cervical AROM some hypermobility with extension; Shoulder AROM WNL bilat (no pain with movments). MMT: R shoulder Flex 4+/5, L shoulder Flex 5/5; R and L shoulder ABD 5/5 ; R IR 4/5, L IR 4/5; ER bilaterally 5/5. Neuro: biceps tendon reflex L 1/3; R 0/3. Palpation:Tenderness at shoulder blades bilaterally; muscle gaurding and tightness of scalenes and upper trap. Observation: Forward head, rounded shoulders. Decreased lordosis in cervical spine. + Distraction. N/T with Spurling in between shoulder blades. Protraction of c/spine increases symptoms of BARROW 1x10. Retraction of c/spine helped at first then did not change symtoms 2x10 - Goals Goal 1:: Decrease paresthesias of UE by 50% to increase patietns tolerance for work duties. Goal Time Frame: 2-4 Weeks Goal 2:: Decrease bialteral shoulder pain by 80% to aid with patients sleep during the night. Goal Time Frame: 2-4 Weeks Goal 3:: Patient with verbalize and demonstrate proper posture. Goal Time Frame: 4-6 Weeks Goal 4:: I with HEP Goal Time Frame: 4-6 Weeks - Rehabilitation Potential Physical Therapy Diagnosis: Upper extremity radiculopathy, Upper extremity weakness, poor posture secondary to DDD Rehabilitation Potential: Good - Anticipated Interventions Patient/Client Instruction: Educate patient on: Condition, Plan of Care For the Purpose of:: To decrease pain, To improve muscle performance and motor function, To increase tolerance to activity/condition/position, To increase flexibility/ROM Therapeutic Exercise to Include: Duncan Exercises, Scapular Strength/Stabilization For the Purpose of:: To decrease pain, To improve muscle performance and motor function, To increase tolerance to activity/condition/position Thank you for the opportunity to evaluate your patient. For Medicare and Medicare HMO plans, please review the plan of care and approve it. It will need to be FAXED BACK to us at [phone] for Medicare purposes. For Medicare only, by signing this I certify the plan of care. Please let me know if there are questions or concerns regarding this plan of care. Physician Signature: Date:
--- NOTE | 2021-03-10 14:25 | HP.PTDCSUM ---
It has been my pleasure to treat JORDY ALAN referred by FIDEL SANTACRUZ, with the diagnosis of Paresthesia and pain of both upper extremities for a total of 7 visit(s). Discharge Date: Please see the following information for a summary of their discharge status. Subjective: Pt reports her scapular pain is much better, but her neck and R UE pain is the same Bilateral shoulders/arms Pain Intensity (Out of 10): 5 % Improvement: 20 Objective/Function: Pt reports B UE parasthesias are still rated at 5/10. Pt is still having sleep difficulty secondary to pain. Pt has approved postural awareness at this time. Pt is I with HEP Goal 1:: Decrease paresthesias of UE by 50% to increase patietns tolerance for work duties. Goal Progress: Not Progressing Goal 2:: Decrease bialteral shoulder pain by 80% to aid with patients sleep during the night. Goal Progress: Not Progressing Goal 3:: Patient with verbalize and demonstrate proper posture. Goal Progress: Goal Met Goal 4:: I with HEP Goal Progress: Goal Met Plan: Discontinue, RTD for followup If there are questions or concerns regarding this patient's physical therapy, please feel free to call me at [phone]. Thank you for the referral of this patient. Sincerely, Hayder Palacios, PT, ATC
== END 2021-03-10 19:00 | disposition home or self-care (01) ==
LOC: PT 13:30
PROVIDERS: PCP Family Medicine
DX: M79.601 Pain in right arm (principal); M79.602 Pain in left arm; M54.2 Cervicalgia; R20.2 Paresthesia of skin; R53.1 Weakness
CPT/HCPCS: 97110; 97161; 97164

== ENCOUNTER 2021-03-18 10:01 | Day surgery (SDC) | payer BC, SELFPAY ==
[2021-03-12 10:25] LABS: Hematocrit 39.4 % (37-47); Hemoglobin 12.5 g/dL (12.0-15.0); Mean Corp Hgb Conc 31.7 g/dL (32-36); Mean Corpuscular Volume 91.4 fL (81-99); Mean Platelet Vol. 12.4 fl (6.2-12.0); Platelet Count 336 K/mm3 (150-450); RBC Distribution Width CV 13.4 % (11.6-14.6); RBC Distribution Width SD 45.1 fl (35.1-43.9); Red Blood Count 4.31 M/mm3 (4.2-5.4)
[2021-03-12 10:36] LABS: Prothrombin Time (Protime)PT. 12.9 SECONDS (11.7-14.9)
[2021-03-12 10:37] LABS: Partial Thromboplast Time 27.6 Seconds (24.1-36.2)
[2021-03-12 11:02] LABS: AST(SGOT) 10 U/L (15-37); Alanine Aminotransfer ALT/SGPT 13 U/L (13-56); Albumin, Serum 3.6 g/dL (3.2-5.0); Alkaline Phosphatase 85 U/L (45-117); Bilirubin, Direct 0.15 mg/dL (0.00-0.30); Globulin 3.4 g/dL (2.2-4.2)
--- NOTE | 2021-03-16 10:19 | PCM.HP.BLA ---
History and Physical Date of Admission: 03/18/21 HPI: The patient is a 20 year old adult presenting for pre-operative visit. She is scheduled for laparoscopic bilateral salpingectomy, for sterilization. Procedure discussed along with risks, benefits and complications. Other alternatives discussed for management. Consent form signed? Yes. ? ? PAST MEDICAL HISTORY PAST MEDICAL HISTORY Diagnosis Date ? Anxiety ? ? Depression ? ? Family history of early CAD ? ? Fibromyalgia ? ? Gout ? ? PTSD (post-traumatic stress disorder) ? ? ? PAST SURGICAL HISTORY PAST SURGICAL HISTORY Procedure Laterality Date ? EXTRACTION ERUPTED TOOTH/EXR ? CURRENT MEDICATIONS Current Outpatient Medications Medication Sig Dispense Refill ? hydrOXYzine HCl (ATARAX) 50 mg tablet TAKE 1 TABLET BY MOUTH EVERY 8 HOURS NEEDED FOR ITCHING ? ? ? amitriptyline (ELAVIL) 50 mg tablet Take 50 mg by mouth daily at bedtime. ? ? ? allopurinol (ZYLOPRIM) 100 mg tablet 1 po q day ? ? ? buPROPion XL (WELLBUTRIN XL) 150 mg 24 hr tablet Take 150 mg by mouth. ? ? ? predniSONE (DELTASONE) 5 mg tablet TAKE 8 TABLETS BY MOUTH ON DAY 1 DECREASE BY 1 TABLET A DAY UNTIL GONE. TO BE USED ON AN NEEDED BASIS ? ? ? ibuprofen-famotidine 800-26.6 mg tab 1 po tid PRN ? ? ? ENSKYCE 0.15-0.03 mg per tablet Take 1 tablet by mouth once daily. ? 12 ? gabapentin (NEURONTIN) 100 mg capsule Take 1 capsule by mouth once daily. (Patient not taking: Reported on 02/10/2021) ? ? ? colchicine 0.6 mg tablet 1 po bid can decrease to 1 po q day if diarrhea (Patient not taking: Reported on 02/10/2021) ? ? ? prazosin (MINIPRESS) 2 mg cap TAKE 1 CAPSULE BY MOUTH NIGHTLY (Patient not taking: Reported on 02/10/2021) ? ? ? Current Facility-Administered Medications Medication Dose Route Frequency Provider Last Rate Last Admin ? perflutren lipid microspheres 1.3 mL in NaCl (PF) 0.9% 10 mL injection (DEFINITY) INTRAVENOUS DIRECTED PRN Derick Hinds MD ? sodium chloride 0.9 % (flush) 10 mL (BD POSIFLUSH) 10 mL INTRAVENOUS DIRECTED PRN Derick Hinds MD ? ? ALLERGIES: Penicillin G and Lamotrigine ? PERSONAL HISTORY: SOCIAL HISTORY Social History ? Tobacco Use ? Smoking status: Never Smoker ? Smokeless tobacco: Never Used Vaping Use ? Vaping Use: Some days ? Substances: CBD Substance Use Topics ? Alcohol use: Yes ? Drug use: Yes ? ? Types: Marijuana ? FAMILY HISTORY: FAMILY HISTORY FAMILY HISTORY Problem Relation Age of Onset ? Systemic Lupus Erythematosus Mother ? ? Heart Attack Father 58 ? Fibromyalgia Sister ? ? other (LVNC) Brother ? ? ? REVIEW OF SYMPTOMS: GENERAL: denies fevers or chills ENDOCRINOLOGY: has not been on steroids Cardiology : denies palpitations or chest pain Respiratory: denies SOB or cough Hematology: denies history of prolonged bleeding or easy bruising or VTE Allergy: Denies history of personal or family history of allergy to anesthesia ? PHYSICAL EXAMINATION: ? VITALS: Blood pressure 118/70, weight 212 lb (96.2 kg), last menstrual period 04/29/2020. ? GENERAL: The patient is well nourished, well hydrated in no acute distress. , The patient is oriented to time, place, and person. NECK: Supple. No lynphadenopathy, normal thyroid, no thyromegaly. LUNGS: Clear to auscultation bilaterally. no wheezes, rhonchi or rales HEART: Regular rate and rhythm, Normal heart sounds and No murmurs or gallops ? IMPRESSION: Sterilization request ? PLAN: The risks/benefits/alternatives and personal involved for the planned laparoscopic bilateral salpingectomy were reviewed with the patient. Her questions were answered to her satisfaction and she desires to proceed. Consent was signed. I reviewed with her postop instructions and expectations. ? ? I have reviewed and updated past medical and surgical history, medications and allergies Assessment & Plan Assessment/Plan (1) Sterilization:
[2021-03-18] MEDS: Lactated Ringers 1,000 ML 100 ML IV (10:20)
[2021-03-18 10:40] LABS: Internal QC Validated? YES +Cl - CLEAR BKGD; Pregnancy, Urine Negative Negative
[2021-03-18 10:49] VITALS: BP 132/80; PULSE 95; RESP 16; TEMP 36.8; O2SAT 100; BMI 35.6
[2021-03-18] MEDS: Celecoxib 200 MG Capsule 400 MG PO (10:53)
[2021-03-18] MEDS: Acetaminophen 500 MG Tablet 1000 MG PO (10:54)
[2021-03-18] MEDS: Gabapentin 400 MG Capsule PO (10:54)
--- NOTE | 2021-03-18 11:45 | FALS_PTH ---
PATIENT: JORDY ALAN LOC: [facility] [place] U#:[id number] AGE/SX: ROOM: RE03/18/[address]: Dr. Tanya Reyes MD : 2000 BED: DIS: 03/18/2021 SPEC #: [id number] RECD: 03/18/21 14:08 STATUS: GAY REDusty #: [id number] NISA: 03/18/21 11:[address]: Tanya Reyes DEPT: SURGICAL PATHOLOGY RECD BY: Marielos Baig ENTERED: 03/19/21 08:11 SP TYPE: FALL TUBES OTHR DR: Dr. Berlin Lao MD Tissues: Fallopian tube Procedures: Surgery Specimen Level II HEADER OPERATION: Laparoscopic salpingectomy PRE-OP DIAGNOSIS: Sterilization TISSUE SUBMITTED: Bilateral fallopian tubes MICROSCOPIC DIAGNOSIS Bilateral fallopian tubes, salpingectomy: Bilateral fallopian tubes, no pathologic diagnosis. DANNY:bernard 03/22/2021 MICROSCOPIC DESCRIPTION Slides are reviewed. GROSS DESCRIPTION Received in fixative is one container labeled with the patient's name and designated bilateral fallopian tubes. The specimen consists of two fallopian tubes with an average length of 5.5 cm and has an average diameter of 0.6 cm. Both fallopian tubes have normal fimbriated ends. No mass lesions are identified. Emergency Crew Supervisor sections are submitted in two cassettes with each cassette containing one fallopian tube. / AM:bernard 03/19/21 TC:4 [facility]: [id number] x2
--- NOTE | 2021-03-18 12:38 | PCM.DC ---
Discharge Instructions Diet Discharge Diet: No restrictions Activity May resume sexual activity in: 1 week Dressing / Incision Call your doctor if your incision/area has: Sudden Increased Bleeding and Foul Smelling Discharge Call your doctor if you observe: Fever of 101 or Higher Cleanse incision/area with: Soap & Water (Your incisions have skin glue and it can get wet. Leave on until it falls off) Follow Up Care Please Follow Up With: Tanya Reyes MD When: In my office or virtual visit in 1-2 weeks or as needed Test Results: Test results from this visit will be discussed in further detail at your follow-up appointment, if applicable. Discharge Plan Admission Primary Reason for Your Visit: tubal sterilization Attending Provider: Tanya Reyes Primary Care Provider: [place] Lao Instructions Patient Instructions: Laparoscopic Tubal Sterilization Discharge Orders/Prescriptions Prescriptions: New ibuprofen [ibuprofen] 600 MG tablet 600 mg PO Q6H PRN (Reason: Pain) Qty: 60 RF: 1 oxycodone 5 MG tablet 5 mg PO Q6H PRN PRN (Reason: severe pain) 3 Days Qty: 6 RF: 0 Continued Vitamin D3 5,000 unit PO DAILY RF: 0 Vitamin B12 1,000 mcg PO QODAY RF: 0 loratadine 10 MG tablet 10 mg PO DAILY PRN (Reason: allergies) RF: 0 desogestrel-ethinyl estradiol 1 EACH tablet 1 tab PO DAILY RF: 0 ibuprofen-famotidine 1 EACH tablet 1 tab PO TID PRN (Reason: Pain/Inflammation) RF: 0 bupropion HCl 200 mg Tablet Sustained-Release 12 Hr 200 mg PO DAILY RF: 0 allopurinol 100 mg Tablet 100 mg PO DAILY RF: 0 amitriptyline 50 mg Tablet 50 mg PO QHS RF: 0 Referrals / Follow Up: Berlin Lao MD [Primary Care Provider] - Disposition Disposition (needs filled in before D/C Order can be placed): Home, Self Care
[2021-03-18] MEDS: Bupivacaine Mpf 0.5% 30 ML VIAL (12:49)
[2021-03-18 13:16] VITALS: BP 132/80; BP 138/93; PULSE 86; RESP 14; TEMP 36.4; O2SAT 96
--- NOTE | 2021-03-18 13:25 | OP.PCM_ITS ---
Problems Associated Problem List Diagnoses (1) Sterilization: Report of Operation Date of Procedure: 03/18/21 Pre-Operative Diagnosis: sterilization request Post-Operative Diagnosis: same Surgery/Procedure Performed:: Laparoscopic bilateral salpingectomy Description of Surgical Findings:: normal uterus, tubes, ovaries and vagina Surgeon: Tanya Reyes superintendent refuse disposal: None superintendent refuse disposal: Aman Christina Type of Anesthesia: General Anesthesiologist: Aman Christina Special Medications: none Specimen's removed: bilateral fallopian tubes Drains: none Estimated Blood Loss (mL): 10 Fluids Replaced: 1000 Description of Procedure: The patient was taken to the operating room where she was prepped and draped in the dorsolithotomy position. A weighted speculum was placed in the vagina and the anterior lip of the cervix was grasped with a tenaculum. The Yessica uterine manipulator was placed and the remainder of the instruments were removed from the vagina. Attention was turned to the abdomen. All port sites were infiltrated with 0.5% Marcaine before skin incisions were made. A 5 mm intraumbilical incision was made. The anterior abdominal wall was tented up with 2 towel clamps while a 5 mm blade less trocar and sleeve were directly inserted. Intraperitoneal placement was confirmed with the laparoscope. The pneumoperitoneum was created and the underlying abdominal contents were intact. The patient was placed in Trendelenburg. Right and left lower quadrant ports were placed under direct visualization lateral to the inferior epigastric vessels. The bowel was swept away and the above findings were noted. The Endoseal device was used to clamp seal and transect the antimesenteric portions of the right tube to the cornual insertion of the uterus. The tube was amputated from the uterus and the pedicles were all confirmed to be hemostatic. The same procedure was performed on the contralateral side. The specimens were brought out through a 5 mm port. The pedicles were again examined and found to be hemostatic. The lateral ports were removed under direct visualization and no active bleeding was noted. The pneumoperitoneum was released. The skin incisions were closed with Monocryl suture in a subcuticular fashion and skin glue. The vaginal instruments were removed and the vaginal sweep was completed by me. The procedure was performed by me with assistance other than as dictated above. All sponge and needle counts were correct and the patient was taken to the recovery room in stable condition. Grafts/Implants Used: none Procedure Start Time: 12:46 Procedure Stop Time: 13:00 Complications none Admit VTE Documentation VTE Present on Admission: No VTE Mechan Device Prophylaxis: SCD's VTE Pharm Prophylaxis ordered?: No Reason prophylaxis not ordered:: Procedure Not Indicated
[2021-03-18 13:33] VITALS: BP 132/80; BP 132/86; PULSE 68; RESP 14; O2SAT 100
[2021-03-18 13:36] VITALS: BP 123/81; BP 132/80; PULSE 66; RESP 14; TEMP 35; O2SAT 100
[2021-03-18 14:58] VITALS: BP 132/80; BP 141/88; PULSE 87; RESP 16; TEMP 36.7; O2SAT 100
== END 2021-03-18 15:08 | disposition home or self-care (01) ==
LOC: SDC 10:01 → AC 10:01
PROVIDERS: Anesthesiology; PCP Family Medicine; Referring Provider Obstetrics & Gynecology; Visit Provider Obstetrics & Gynecology
PROC: (CPT 58661; principal; 2021-03-18 11:30)
DX: Z30.2 Encounter for sterilization (principal); M79.7 Fibromyalgia; M10.9 Gout, unspecified; E55.9 Vitamin D deficiency, unspecified; E53.8 Deficiency of other specified B group vitamins; F33.2 Major depressive disorder, recurrent severe without psychotic features; F41.1 Generalized anxiety disorder; Z79.899 Other long term (current) drug therapy
CPT/HCPCS: 00840; 58661; 36415; 80076; 81025; 85027; 85610; 85730; 88302; J7120; C1760; J2405

== ENCOUNTER → 2021-07-01 | Outpatient (CLI) | payer BC, SELFPAY | END | disposition home or self-care (01) | PROVIDERS: PCP Family Medicine; Visit Provider Family Medicine | DX: U07.1 COVID-19 (principal); J01.90 Acute sinusitis, unspecified | CPT/HCPCS: 87635; U0005; U0003 ==

== ENCOUNTER → 2022-01-17 | Outpatient (CLI) | payer OTHER, SELFPAY ==
[2022-01-17 15:23] LABS: Absolute Lymphocyte Count 2.05 X10^3/uL (0.83-4.51); Absolute Neutrophil Count 3.9 X10^3/uL (2.0-7.7); Basophil# 0.06 X10^3/uL; Basophil% 0.9 % (0-1); Eosinophil# 0.26 X10^3/uL; Eosinophils% 3.9 % (0-5); Hematocrit 41.7 % (37-47); Hemoglobin 13.2 g/dL (12.0-15.0); Lymphocyte # 2.05 X10^3/ul (0.83-4.51); Lymphocyte % 30.8 % (19-41); Mean Corp Hgb Conc 31.7 g/dL (32-36); Mean Corpuscular Hgb 30.4 pg (27.0-32.0); Mean Corpuscular Volume 96.1 fL (81-99); Mean Platelet Vol. 12.8 fl (6.2-12.0); Monocyte# 0.35 X10^3/uL; Monocyte% 5.3 % (0-10); NRBC Flagged by Analyzer 0 % (0-5); Neutrophil # 3.91 X10^3/uL (2.7-7.7); Neutrophil % 58.8 % (47-70); Platelet Count 275 K/mm3 (150-450); RBC Distribution Width CV 13.3 % (11.6-14.6); RBC Distribution Width SD 47.6 fl (35.1-43.9); Red Blood Count 4.34 M/mm3 (4.2-5.4); White Blood Count 6.7 K/mm3 (4.4-11.0)
[2022-01-17 15:53] LABS: AST(SGOT) 22 U/L (15-37); Alanine Aminotransfer ALT/SGPT 40 U/L (13-56); Creatinine, Serum 0.76 mg/dL (0.55-1.02); EST Glomerular Filtration Rate 100 mL/min (>60); Est Glom Filt Rate - Afr Amer 120 mL/min (>60); Uric Acid 3.8 mg/dL (2.6-6.0)
== END | disposition home or self-care (01) ==
PROVIDERS: PCP Family Medicine; Visit Provider Internal Medicine Rheumatology
DX: M10.9 Gout, unspecified (principal); M79.7 Fibromyalgia; M54.2 Cervicalgia; G56.01 Carpal tunnel syndrome, right upper limb; Z79.1 Long term (current) use of non-steroidal anti-inflammatories (NSAID); Z82.69 Family history of other diseases of the musculoskeletal system and connective tissue
CPT/HCPCS: 36415; 82565; 84450; 84460; 84550; 85025